=== PATIENT | male | born 1960 ===

== ENCOUNTER 2021-01-03 18:09 | Inpatient (IN) | payer SELFPAY ==
[~2021-01-03] VITALS: Ht 172.7 cm; Wt 106.5 kg
[2021-01-03] MEDS ORDERED: 1/2 NS IV SOLUTION 1,000 ML IV PRN (18:45)
[2021-01-03] MEDS ORDERED: ONDANSETRON 4 MG (ZOFRAN) ORAL DISSOLVE TAB SL PRN (18:45)
[2021-01-03] MEDS ORDERED: LORazepam 1 MG (ATIVAN) TAB PO PRN (18:45)
[2021-01-03] MEDS ORDERED: SENNA W/DOCUSATE (SENOKOT S) TABLET PO PRN (18:45)
[2021-01-03] MEDS ORDERED: D5 1/2 NS 1000 ML IV SOLUTION 1,000 ML IV PRN (18:45)
[2021-01-03] MEDS ORDERED: ONDANSETRON 4 MG/2 ML (SDV) Z0FRAN IV PRN (18:45)
[2021-01-03] MEDS ORDERED: ANTACID SUSP 30 ML UDC (MYLANTA) PO PRN (18:45)
[2021-01-03] MEDS ORDERED: LORazepam INJ 2 MG/ML (ATIVAN) VIAL IM/IV PRN (18:45)
[2021-01-03 22:30] VITALS: BP 119/73
[2021-01-03] MEDS: NS IV 1000 ML 1,000 ML IV SCH (22:57)
[2021-01-03] MEDS: MAGNESIUM OXIDE (MAG-OX)400 MG TAB PO SCH (22:57)
[2021-01-03 23:29] VITALS: BP 101/59
[2021-01-04] VITALS (7 sets, daily range): BP systolic 99–140; BP diastolic 59–78
[2021-01-04] MEDS ORDERED: RT-ALBUTEROL SULF 2.5 MG/3 ML PRE-MIX VIAL INH PRN (02:45)
[2021-01-04] MEDS: NS IV 1000 ML 1,000 ML IV SCH ×3 (02:45→15:31)
[2021-01-04 05:39] LABS: HEMATOCRIT 24 % (40-54); HEMOGLOBIN 7.9 g/dL (13.3-17.7); MEAN CORPUSCULAR HEMOGLOBIN 34 pg (25-34); MEAN CORPUSCULAR HGB CONC 33 g/dL (32-36); MEAN CORPUSCULAR VOLUME 103 fL (80-99); MEAN PLATELET VOLUME 8.9 fL (9.0-12.2); PLATELET COUNT 159 10^3/uL (130-400); WHITE BLOOD COUNT 5.1 10^3/uL (4.3-11.0)
[2021-01-04 05:49] LABS: ALBUMIN 2.5 GM/DL (3.2-4.5); POTASSIUM 3.9 MMOL/L (3.6-5.0); PROTHROMBIN TIME PATIENT 13.3 SEC (12.2-14.7)
[2021-01-04 05:50] LABS: CALCIUM 7.8 MG/DL (8.5-10.1)
[2021-01-04 05:52] LABS: TOTAL PROTEIN 4.7 GM/DL (6.4-8.2)
[2021-01-04 05:53] LABS: BILIRUBIN,TOTAL 0.8 MG/DL (0.1-1.0)
[2021-01-04 05:55] LABS: CREATININE SERUM 0.63 MG/DL (0.60-1.30)
[2021-01-04] MEDS: THIAMINE 100 MG (VITAMIN B-1) TAB PO SCH (06:42)
[2021-01-04] MEDS: MAGNESIUM OXIDE (MAG-OX)400 MG TAB PO SCH ×2 (08:33→19:48)
[2021-01-04] MEDS: ACETAMINOPHEN 325 MG TABLET PO PRN (08:33)
[2021-01-04] MEDS: LORazepam INJ 2 MG/ML (ATIVAN) VIAL IV PRN ×6 (10:00→22:30)
[2021-01-04] MEDS ORDERED: MULT-1136 PO (10:06)
[2021-01-04] MEDS ORDERED: PEG15DRO9 OP (10:06)
[2021-01-04] MEDS ORDERED: METO50TA7 PO ×2 (10:06)
[2021-01-04] MEDS ORDERED: [UNRECOGNIZED DRUG - CODE] PO (10:06)
[2021-01-04] MEDS ORDERED: DIPH25TA65 PO (10:06)
--- NOTE | 2021-01-04 12:44 | History & Physical-Hospitalist ---
History of Present Illness HPI/Chief Complaint Pt is a 60yoCM with a PMH of HTN, alcohol abuse who presented to the ER due to weakness. He reports that last week he started to get sore muscles and weakness. He sustained multiple falls. 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 He quit drinking when all of this started as well and he feels quite shakey. He has quit drinking for months in the past and never had any withdrawal issues or seizures. He reports feeling better today. Source: patient Date Seen 01/04/21 Time Seen by a Provider: 11:15 Attending Physician Will Jeffrey MD PCP No,Local Physician Referring Physician Date of Admission Jan 03, 2021 at 22:20 Home Medications & Allergies Home Medications Reviewed patient Home Medication Reconciliation performed by pharmacy medication reconciliations slot technician and/or nursing. Patients Allergies have been reviewed. Allergies Allergies Coded Allergies No Known Drug Allergies (Unverified01/03/21) Past Jcpwvrx-Divdkw-Vxphve Hx Patient Social History Marrital Status: Employed/Student: employed Tobacco Use?: No Smoking Status: Former Smoker Smokeless type used: Chew Smokeless Tobacco Frequency: Current Everyday User, Heavy User Use of E-Cig and/or Vaping dev: No Substance use?: No Alcohol Use?: Yes Alcohol type: Beer Alcohol Frequency: Daily Additional Alcohol Comments: 5-16 DAILY Pt feels they are or have been: No Current Status Advance Directives: Yes Advance Directive Location: Home Communicates: Verbally Primary Language: [place] Preferred Spoken Language: [place]se Is interpretation needed?: No Sensory deficits: Vision impairment Implanted or Applied Medical D: None Past Medical History Hypertension Family Medical History Reviewed Nursing Family Hx No Pertinent Family Hx Review of Systems Constitutional: No chills, No fever; malaise, weakness EENTM: no symptoms reported Respiratory: no symptoms reported Cardiovascular: no symptoms reported Gastrointestinal: no symptoms reported Genitourinary: no symptoms reported Musculoskeletal: see HPI Skin: no symptoms reported Psychiatric/Neurological: No Symptoms Reported Physical Exam Physical Exam Vital Signs Vital Signs - First Documented 01/03/21 01/04/21 22:30 02:22 Temp 36.4 Pulse 103 Resp 18 B/P (MAP) 119/73 (88) Pulse Ox 100 O2 Delivery Room Air FiO2 21 Capillary Refill : Height, Weight, BMI Height: '" Weight: lbs. oz. kg; 232.26 BMI Method: General Appearance: No Apparent Distress, WD/WN HEENT: PERRL/EOMI, Moist Mucous Membranes Neck: Normal Inspection, Supple Respiratory: Lungs Clear, No Respiratory Distress Cardiovascular: Regular Rate, Rhythm, No Murmur Gastrointestinal: Normal Bowel Sounds, Non Tender, Soft Extremity: Normal Capillary Refill, No Calf Tenderness, No Pedal Edema Neurologic/Psychiatric: Alert, Oriented x3, Normal Mood/Affect Skin: Normal Color, Warm/Dry Results Results/Procedures Labs Laboratory Tests 01/04/21 05:25 Patient resulted labs reviewed. Imaging: Reviewed Imaging Report (from outside facility) Assessment/Plan Admission Diagnosis Rhabdomyolysis Admission Status: Inpatient Order (span 2 midnights) Reason for Inpatient Admission: see below Assessment and Plan Rhabdomyolsis Continue IVF CK down from 15k to 8k today Check in AM PT/OT Advised to hydrate with water/electrolytes instead of beer when working outside Alcohol abuse transaminitis 1 week since last drink CIWA protocol Quite shakey still HTN Continue home metoprolol Macrocytic anemia Hgb 7.9- consistent with alcohol abuse Trend DVT ppx: Lovenox Diagnosis/Problems Diagnosis/Problems (1) Alcohol abuse (2) Anemia, macrocytic (3) HTN (hypertension) Qualifiers: Hypertension type: primary hypertension Qualified Codes: I10 - Essential (primary) hypertension (4) Rhabdomyolysis Qualifiers: Rhabdomyolysis type: non-traumatic Qualified Codes: M62.82 - Rhabdomyolysis WILL JEFFREY MD Jan 04, 2021 12:44
--- NOTE | 2021-01-04 14:06 | Physical Therapy Evaluation ---
PT Evaluation-General Medical Diagnosis Admission Date Jan 03, 2021 at 22:20 Medical Diagnosis: RHABDOMYOLYSIS Onset Date: Jan 03, 2021 Therapy Diagnosis Therapy Diagnosis: impaired mobility, strength, endurance Precautions Precautions/Isolations: Seizure, Fall Prevention Referral Physician: Rachele Reason for Referral: Evaluation/Treatment Medical History Pertinent Medical History: Smoking Reviewed History: Yes Social History Home: Single Level Current Living Status: Spouse Entry Into Home: Stairs Without Railing PT Steps Into Home: 3 Prior Prior Level of Function SCALE: Activities may be completed with or without assistive devices. 3-Ksnjwenhqy-vltbfhb completes the activity by him/herself with no assistance from a helper. 5-Set-up or Clean-up Assistance-helper sets up or cleans up; patient completes activity. [place] assists only prior to or following the activity. 4-Supervision or Touching Assistance-helper provides verbal cues and/or touching/steadying and/or contact guard assistance as patient completes activity. Assistance may be provided throughout the activity or intermittently. 3-Partial/Moderate Assistance-helper does LESS THAN HALF the effort. [place]ham lifts, holds or supports trunk or limbs, but provides less than half the effort. 2-Substantial/Maximal Assistance-helper does MORE THAN HALF the effort. [place] lifts or holds trunk or limbs and provides more than half the effort. 4-Qekrhhvup-rucyzx does ALL the effort. Patient does none of the effort to complete the activity. Or, the assistance of 2 or more helpers is required for the patient to complete the activity. If activity was not attempted, code reason: 7-Patient Refused. 9-Not Applicable-not attempted and the patient did not perform the activity before the current illness, exacerbation or injury. 10-Not Attempted due to Environmental Limitations-(lack of equipment, weather restraints, etc.). 88-Not Attempted due to Medical Conditions or Safety Concerns. Bed Mobility: 6 Transfers (B,C,W/C): 6 Gait: 6 Stairs: 6 Indoor Mobility (Ambulation): Independent Stairs: Independent PT Evaluation-Current Subjective Patient in bed pre tx, agrees to PT, has no complaints of pain. Pt/Family Goals "to get stronger" Objective Patient Orientation: Person, Place, Situation Attachments: IV ROM/Strength ROM Lower Extremities WNL Strength Lower Extremities LLE (hip flexion 2/5, knee flexion 2/5, knee extension 3-/5, dorsiflexion 4/5), RLE (hip flexion 2/5, knee flexion 2/5, knee extension 2/5, dorsiflexion 4/5) Integumentary/Posture Integumentary patient has some wounds and bruising on both knees Sensory Vision: Wears Glasses Hearing: Functional Sensation Right Lower Extremit: Intact Sensation Left Lower Extremity: Intact Transfers Roll Left to Right (QC): 6 Sit to Lying (QC): 4 Lying to Sitting/Side of Bed(Q: 6 Sit to Stand (QC): 3 Patient had a bit of a hard time getting his legs back into bed when laying down but was able to do it without assist. Patient needed a hard mod assist to stand from a slightly elevated bed. Patient is very shaky, stands for about [id number] with worsening shaking before needing to sit back down. Patient's knees buckled with sitting, therapist guiding him back on the bed so he doesn't just collapse straight to the floor. Balance Sitting Static: Normal Sitting Dynamic: Normal Standing Static: Poor Standing Dynamic: Poor Treatment BLE supine exercises x10 (HS, QS, GS) Assessment/Needs Patient in bed post tx with nurse call, phone, tray, all needs met, has a telesitter, bed alarm on. Patient has impaired mobility, strength, endurance. Patient is a high fall risk, very shaky a weak with standing, high risk for knee buckling and fall if he should ambulate. Rehab Potential: Guarded PT Journalism Teacher Goals Journalism Teacher Goals PT Residential Goals Time Frame: Jan 11, 2021 Roll Left & Right (QC): 6 Sit to Lying (QC): 6 Lying-Sitting on Side/Bed(QC): 6 Sit to Stand (QC): 4 Chair/Abq-oi-Qtmpn Xfer(QC): 4 Walk 10 feet (QC): 4 Walk 50ft with 2 Turns (QC): 4 PT Plan Problem List Problem List: Activity Tolerance, Functional Strength, Safety, Balance, Gait, Transfer, Bed Mobility, ROM Treatment/Plan Treatment Plan: Continue Plan of Care Treatment Plan: Bed Mobility, Education, Functional Activity Saniya, Functional Strength, Gait, Safety, Therapeutic Exercise, Transfers Treatment Duration: Jan 11, 2021 Frequency: 6 times per week Estimated Hrs Per Day: .25 hour per day Patient and/or Family Agrees t: Yes Safety Risks/Education Patient Education: Transfer Techniques, Correct Positioning, Safety Issues Teaching Recipient: Patient Teaching Methods: Demonstration, Discussion Response to Teaching: Reinforcement Needed Discharge Recommendations Plan Patient will perform bed mobility and transfer training, balance and endurance training, functional strengthening, stair training, gait training, and education, to improve functional mobility and independence at home. Therapy Discharge Recommendati: 24 Hour Supervision Time/GCodes Time In: 1306 Time Out: 1320 Total Billed Treatment Time: 14 Total Billed Treatment 1 visit EL Mena' KIM CORDERO PT Jan 04, 2021 14:06
[2021-01-04] MEDS: ENOXAPARIN 40 MG/0.4 ML (LOVENOX) SYR SQ SCH (15:28)
[2021-01-04] MEDS: meTOproloL SUCCINATE 50 MG (TOPROL XL) TAB PO SCH (15:28)
--- NOTE | 2021-01-04 16:22 | Diagnostic Imaging Report ---
INDICATION: Bilateral hip injury from a fall. EXAMINATION: AP view pelvis and two views of each hip were obtained. There is no fracture or dislocation. Joint spaces are well maintained. Articular surfaces appear smooth. IMPRESSION: Negative pelvis and bilateral hips. Dictated by: Dictated on workstation # [id number]
[2021-01-04] MEDS: diphenhydrAMINE 25 MG TAB (BENADRYL) PO SCH (19:48)
[2021-01-05] VITALS (28 sets, daily range): BP systolic 85–152; BP diastolic 52–90
[2021-01-05] MEDS: NS IV 1000 ML 1,000 ML IV SCH ×3 (00:19→16:16)
[2021-01-05] MEDS: LORazepam INJ 2 MG/ML (ATIVAN) VIAL IV PRN ×3 (01:14→09:20)
[2021-01-05] MEDS ORDERED: DexMEDEtomidine 250 ML DRIP 250 ML IV ONE (01:15)
[2021-01-05] MEDS ORDERED: DexMEDEtomidine 250 ML DRIP 250 ML IV SCH (01:15)
[2021-01-05 03:40] LABS: BASOPHILS % (AUTO) 1 % (0-10); EOSINOPHILS # (AUTO) 0.1 10^3/uL (0.0-0.3); EOSINOPHILS % (AUTO) 2 % (0-10); HEMATOCRIT 23 % (40-54); HEMOGLOBIN 7.4 g/dL (13.3-17.7); LYMPHOCYTES # (AUTO) 0.7 10^3/uL (1.0-4.0); LYMPHOCYTES % (AUTO) 18 % (12-44); MEAN CORPUSCULAR HEMOGLOBIN 35 pg (25-34); MEAN CORPUSCULAR HGB CONC 33 g/dL (32-36); MEAN CORPUSCULAR VOLUME 105 fL (80-99); MEAN PLATELET VOLUME 8.7 fL (9.0-12.2); MONOCYTES # (AUTO) 0.7 10^3/uL (0.0-1.0); MONOCYTES % (AUTO) 17 % (0-12); NEUTROPHILS # (AUTO) 2.4 10^3/uL (1.8-7.8); NEUTROPHILS % (AUTO) 59 % (42-75); PLATELET COUNT 161 10^3/uL (130-400)
[2021-01-05 03:52] LABS: POTASSIUM 3.5 MMOL/L (3.6-5.0)
[2021-01-05 03:53] LABS: CALCIUM 7.7 MG/DL (8.5-10.1)
[2021-01-05 03:57] LABS: PHOSPHORUS 4.4 MG/DL (2.3-4.7)
[2021-01-05 03:58] LABS: CREATININE SERUM 0.63 MG/DL (0.60-1.30)
--- NOTE | 2021-01-05 03:59 | Tele-ICU Consult ---
History of Present Illness History of Present Illness Date Seen by Provider: Jan 05, 2021 Time Seen by Provider: 03:54 Date of Admission Reason for Visit: Alcohol withdrawal delirium History of Present Illness New ICU admission for possible EtOH withdrawal 60y M with history of HTN and alcohol dependence (~ 15 beers/day per admission record) who presented to the ER initially due to weakness. He reports that last week he started to get sore muscles and weakness, some tremors. 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 Found to have non traumatic rhabdo on admission (date 01/03). Other issues Anemia On lovenox for DVT proph Patient to ICU room 8 at this time with detox symptoms. CIWA score 30 upon transfer. Patient shaking, hallucinating, drenched in sweat, very confused. Patient with a sitter at the bedside. 4mg Ativan administered per CIWA protocol. Precedex drip initiated per Dr Jeffrey order. Allergies and Home Medications Allergies Coded Allergies: No Known Drug Allergies (Unverified , 01/03/21) Home Medications Caffeine 200 Mg Tablet, 200 MG PO Q4H PRN for ALERTNESS, (Reported) Diphenhydramine HCl 25 Mg Tablet, 50 MG PO HS, (Reported) Metoprolol Succinate 50 Mg Tab.er.24h, 50 MG PO DAILY, (Reported) Metoprolol Succinate 50 Mg Tab.er.24h, 50 MG PO 1800 PRN for BLOOD PRESSURE, (Reported) Multivitamin 1 Each Tablet, 1 EACH PO DAILY, (Reported) Peg 400/Hypromellose/Glycerin 15 Ml Drops, 1-2 DROPS OP UD PRN for DRY EYES, (Reported) Past Medical/Social/Family Hx Patient Social History Marrital Status: Employed/Student: employed Tobacco Use?: No Smoking Status: Former Smoker Smokeless type used: Chew Smokeless Tobacco Frequency: Current Everyday User, Heavy User Use of E-Cig and/or Vaping dev: No Substance use?: No Alcohol Use?: Yes Alcohol type: Beer Alcohol Frequency: Daily 5-16 DAILY Pt stated abuse/neglect: No Immunizations Up To Date Influenza Vaccine Up-to-Date: No; Not Current Current Status Advance Directives: Yes Advance Directive Location: Home Communicates: Verbally Primary Language: [place]er Preferred Spoken Language: [place]er Is interpretation needed?: No Sensory deficits: Vision impairment Implanted or Applied Medical D: None Review of Systems Constitutional: diaphoresis, weakness All Other Systems Reviewed Negative Unless Noted: No Exam Exam Patient acknowledged, consented, and participated in this virtual visit which was conducted using real time audio/video Vital Signs Date Time Temp Pulse Resp B/P (MAP) Pulse Ox O2 Delivery O2 Flow Rate FiO2 01/05/21 03:25 36.3 91 18 85/57 (66) 93 Nasal Cannula 2.00 01/05/21 03:25 93 Nasal Cannula 2.00 01/05/21 02:45 97 18 96/52 (67) 94 Nasal Cannula 2.00 01/05/21 02:15 101 19 107/58 (74) 96 Nasal Cannula 2.00 01/05/21 01:45 103 21 118/76 (90) 94 Nasal Cannula 2.00 01/05/21 01:34 93 Nasal Cannula 2.00 01/05/21 01:30 111 27 152/82 (105) 94 Nasal Cannula 2.00 01/05/21 01:27 113 128/80 01/05/21 01:25 Nasal Cannula 2.00 01/05/21 01:15 113 35 128/80 (96) 92 Room Air 01/05/21 01:06 36.4 122 26 124/90 (101) 93 Room Air 01/05/21 01:00 120 01/04/21 23:48 36.9 117 22 136/77 (96) 96 Room Air 01/04/21 20:00 Room Air 01/04/21 19:06 36.0 118 20 140/78 (98) 97 Room Air 01/04/21 15:07 36.0 112 20 99/65 (76) 97 Room Air 01/04/21 12:50 102 01/04/21 11:59 36.6 64 20 105/63 (77) 99 Room Air 01/04/21 08:00 36.8 121 20 105/64 (78) 97 Room Air 01/04/21 08:00 Room Air 01/04/21 07:00 104 01/04/21 04:00 36.4 104 18 105/63 (77) 94 Room Air I & O 01/05/21 07:00 Intake Total 2490 ml Output Total 925 ml Balance 1565 ml Height & Weight Height: '" Weight: lbs. oz. kg; 232.26 BMI Method: General Appearance: No Apparent Distress, WD/WN HEENT: PERRL/EOMI, Moist Mucous Membranes Neck: Normal Inspection, Supple Respiratory: Lungs Clear, No Respiratory Distress Cardiovascular: Regular Rate, Rhythm, No Murmur Extremity: Normal Capillary Refill, No Calf Tenderness, No Pedal Edema Neurologic/Psychiatric: Alert, Oriented x3, Normal Mood/Affect Skin: Normal Color, Warm/Dry Results Lab Laboratory Tests 01/04/21 05:25 01/05/21 03:25 Assessment/Plan Assessment/Plan Alcohol withdrawal delirium, worsening. CIWA 30-34. Precedex, Ativan PRN. CIWA protocol in place. Sitter at bedside for safety Thiamine, folate, Magnesium Anemia without acute blood loss, worsening. Add PPI. Rhabdomyolysis on admit, improving HTN DVT prophylaxis on Lovenox Tobacco cessation Negative sepsis screen Critical Care: Critically Ill Patient Time spent with patient (mins): 15 SANTY ROJAS MD Jan 05, 2021 03:59
[2021-01-05] MEDS: KCL 20 MEQ TAB (K-DUR) PO SCH (04:03)
[2021-01-05] MEDS: MAGNESIUM 1 GM/100 ML IVPB 100 ML IV SCH (04:03)
[2021-01-05] MEDS: POTASSIUM CL 10MEQ/50ML IVPB 50 ML IV SCH ×3 (04:03→04:16)
[2021-01-05] MEDS: THIAMINE 100 MG (VITAMIN B-1) TAB PO SCH (06:04)
--- NOTE | 2021-01-05 08:53 | Progress Note - Hospitalist ---
Subjective HPI/CC On Admission Date Seen by Provider: Jan 05, 2021 Time Seen by Provider: 08:49 Pt is a 60yoCM with a PMH of HTN, alcohol abuse who presented to the ER due to weakness. He reports that last week he started to get sore muscles and weakness. He sustained multiple falls. 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 He quit drinking when all of this started as well and he feels quite shakey. He has quit drinking for months in the past and never had any withdrawal issues or seizures. He reports feeling better today. Subjective/Events-last exam Pt moved to ICU overnight due to severe withdrawal symptoms. Opens eyes and shakes head no when asked if he need anything. Otherwise did not participate in conversation. sitter at bedside. Currently on Precedex. Objective Exam Vital Signs Vital Signs Date Time Temp Pulse Resp B/P (MAP) Pulse Ox O2 Delivery O2 Flow Rate FiO2 01/05/21 08:00 83 17 123/77 (92) 100 Nasal Cannula 2.00 01/05/21 07:03 36.0 01/04/21 02:22 21 Capillary Refill : General Appearance: No Apparent Distress, Obese Respiratory: Lungs Clear, No Respiratory Distress Cardiovascular: Regular Rate, Rhythm, No Murmur Gastrointestinal: Normal Bowel Sounds, Soft Neurologic/Psychiatric: Alert, Disoriented Results/Procedures Lab Laboratory Tests 01/05/21 03:25 Patient resulted labs reviewed. Imaging: Reviewed Imaging Report (from outside facility) Assessment/Plan Assessment and Plan Assess & Plan/Chief Complaint Alcohol abuse transaminitis 1 week since last drink was reported though given severity of withdrawal overnight probably not accurate Transferred to ICU for CIWA scores of 26-34 Precedex CIWA protocol instructional services librarian consulted, appreciate their assistance Rhabdomyolsis Continue IVF [place] down to 7327 today with IVF Check in AM PT HTN Continue home metoprolol Macrocytic anemia Hgb 7.4- consistent with alcohol abuse Trend DVT ppx: Lovenox Critical Care Critically Ill Patient Diagnosis/Problems Diagnosis/Problems (1) Alcohol abuse (2) Anemia, macrocytic (3) HTN (hypertension) Qualifiers: Hypertension type: primary hypertension Qualified Codes: I10 - Essential (primary) hypertension (4) Rhabdomyolysis Qualifiers: Rhabdomyolysis type: non-traumatic Qualified Codes: M62.82 - Rhabdomyolysis WILL WEAVER MD Jan 05, 2021 08:53
[2021-01-05 09:01] LABS: ALBUMIN 2.5 GM/DL (3.2-4.5)
[2021-01-05 09:04] LABS: TOTAL PROTEIN 4.6 GM/DL (6.4-8.2)
[2021-01-05 09:06] LABS: BILIRUBIN,TOTAL 0.8 MG/DL (0.1-1.0)
[2021-01-05 09:09] LABS: BILIRUBIN,DIRECT 0.4 MG/DL (0.0-0.3); BILIRUBIN,INDIRECT 0.4 MG/DL
[2021-01-05] MEDS: meTOproloL SUCCINATE 50 MG (TOPROL XL) TAB PO SCH (09:09)
[2021-01-05] MEDS: FOLIC ACID 1 MG TAB PO SCH (09:10)
[2021-01-05] MEDS: PANTOPRAZOLE 40 MG (PROTONIX) TAB PO SCH (09:10)
[2021-01-05] MEDS: MAGNESIUM OXIDE (MAG-OX)400 MG TAB PO SCH ×2 (09:10→19:23)
[2021-01-05] MEDS: ENOXAPARIN 40 MG/0.4 ML (LOVENOX) SYR SQ SCH (14:52)
[2021-01-05] MEDS: diphenhydrAMINE 25 MG TAB (BENADRYL) PO SCH (19:23)
[2021-01-06] VITALS (14 sets, daily range): BP systolic 114–133; BP diastolic 60–86
[2021-01-06] MEDS: NS IV 1000 ML 1,000 ML IV SCH (00:19)
[2021-01-06 03:31] LABS: BASOPHILS % (AUTO) 1 % (0-10); EOSINOPHILS # (AUTO) 0.1 10^3/uL (0.0-0.3); EOSINOPHILS % (AUTO) 3 % (0-10); HEMATOCRIT 27 % (40-54); HEMOGLOBIN 8.8 g/dL (13.3-17.7); LYMPHOCYTES # (AUTO) 0.8 10^3/uL (1.0-4.0); LYMPHOCYTES % (AUTO) 23 % (12-44); MEAN CORPUSCULAR HEMOGLOBIN 35 pg (25-34); MEAN CORPUSCULAR HGB CONC 33 g/dL (32-36); MEAN CORPUSCULAR VOLUME 105 fL (80-99); MEAN PLATELET VOLUME 8.6 fL (9.0-12.2); MONOCYTES # (AUTO) 0.5 10^3/uL (0.0-1.0); MONOCYTES % (AUTO) 14 % (0-12); NEUTROPHILS % (AUTO) 55 % (42-75); PLATELET COUNT 198 10^3/uL (130-400); WHITE BLOOD COUNT 3.7 10^3/uL (4.3-11.0)
[2021-01-06 03:44] LABS: POTASSIUM 3.8 MMOL/L (3.6-5.0)
[2021-01-06 03:45] LABS: CALCIUM 7.9 MG/DL (8.5-10.1)
[2021-01-06 03:49] LABS: CREATININE SERUM 0.6 MG/DL (0.60-1.30); PHOSPHORUS 2.7 MG/DL (2.3-4.7)
[2021-01-06] MEDS: MAGNESIUM 1 GM/100 ML IVPB 100 ML IV SCH (04:18)
[2021-01-06] MEDS: POTASSIUM CL 10MEQ/50ML IVPB 50 ML IV SCH (04:18)
[2021-01-06] MEDS: KCL 20 MEQ TAB (K-DUR) PO SCH (04:19)
[2021-01-06] MEDS: THIAMINE 100 MG (VITAMIN B-1) TAB PO SCH (04:39)
--- NOTE | 2021-01-06 08:12 | Progress Note - Hospitalist ---
Subjective HPI/CC On Admission Date Seen by Provider: Jan 06, 2021 Time Seen by Provider: 08:07 Pt is a 60yoCM with a PMH of HTN, alcohol abuse who presented to the ER due to weakness. He reports that last week he started to get sore muscles and weakness. He sustained multiple falls. 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 He quit drinking when all of this started as well and he feels quite shakey. He has quit drinking for months in the past and never had any withdrawal issues or seizures. He reports feeling better today. Subjective/Events-last exam Pt is much more alert today. Oriented today as well. No complaints.Asks me why he has been falling. We discussed how drink 18 beers per day would make anyone fall down. He does not seem to believe this to be the reason. Objective Exam Vital Signs Vital Signs Date Time Temp Pulse Resp B/P (MAP) Pulse Ox O2 Delivery O2 Flow Rate FiO2 01/06/21 07:38 36.2 01/06/21 07:00 68 01/06/21 06:00 20 123/67 (85) 96 Room Air 01/06/21 05:00 1.00 01/05/21 16:15 28 Capillary Refill : General Appearance: No Apparent Distress, Chronically ill, Obese Respiratory: Lungs Clear, No Respiratory Distress Cardiovascular: Regular Rate, Rhythm, No Murmur Gastrointestinal: Normal Bowel Sounds, Soft Neurologic/Psychiatric: Alert, Oriented x3 Results/Procedures Lab Laboratory Tests 01/06/21 03:20 Patient resulted labs reviewed. 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 though given severity of withdrawal while here probably not accurate Now off Precedex [facility] protocol customer services supervisor consulted, appreciate their assistance Transfer to [facility] Rhabdomyolsis Continue IVF CK pending this AM PT HTN Continue home metoprolol Macrocytic anemia Hgb 8.8 - consistent with alcohol abuse DVT ppx: Lovenox Critical Care Critically Ill Patient Diagnosis/Problems Diagnosis/Problems (1) Alcohol abuse (2) Anemia, macrocytic (3) HTN (hypertension) Qualifiers: Hypertension type: primary hypertension Qualified Codes: I10 - Essential (primary) hypertension (4) Rhabdomyolysis Qualifiers: Rhabdomyolysis type: non-traumatic Qualified Codes: M62.82 - Rhabdomyolysis WILL WEAVER MD Jan 06, 2021 08:12
[2021-01-06] MEDS: meTOproloL SUCCINATE 50 MG (TOPROL XL) TAB PO SCH (08:17)
[2021-01-06] MEDS: MAGNESIUM OXIDE (MAG-OX)400 MG TAB PO SCH (08:17)
[2021-01-06] MEDS: FOLIC ACID 1 MG TAB PO SCH (08:17)
[2021-01-06] MEDS: PANTOPRAZOLE 40 MG (PROTONIX) TAB PO SCH (08:17)
--- NOTE | 2021-01-06 08:57 | Tele-ICU Progress Note ---
Subjective Date Seen by a Provider: Jan 06, 2021 Time Seen by a Provider: 08:54 Subjective/Events-last exam 60 ho M brought to MICU for increasing severity of EtOH withdrawal, CIWA estimated to be 30, placed on PRN IV Ativan, calmer this am Had rhabdo with orginal CK 7327, now 2654 On MVI, folate and IV thiamine Hb now 8.8 Sepsis Event Evaluation Height, Weight, BMI Height: '" Weight: lbs. oz. kg; 232.26 BMI Method: Exam Exam Patient acknowledged, consented, and participated in this virtual visit which was conducted using real time audio/video Vital Signs Date Time Temp Pulse Resp B/P (MAP) Pulse Ox O2 Delivery O2 Flow Rate FiO2 01/06/21 08:00 66 18 124/71 (84) 94 Room Air 01/06/21 07:38 36.2 01/06/21 07:00 68 01/06/21 07:00 67 17 120/60 (93) 99 Room Air 01/06/21 06:00 86 20 123/67 (85) 96 Room Air 01/06/21 05:50 Room Air 01/06/21 05:00 100 15 117/62 (80) 100 Nasal Cannula 1.00 01/06/21 04:00 90 16 133/78 (96) 97 Nasal Cannula 1.00 01/06/21 03:50 100 Nasal Cannula 1.00 01/06/21 03:50 36.5 100 Nasal Cannula 1.00 01/06/21 03:00 83 21 133/80 (97) 100 Nasal Cannula 1.00 01/06/21 02:00 80 18 122/72 (89) 98 Nasal Cannula 1.00 01/06/21 01:50 98 Nasal Cannula 1.00 01/06/21 01:00 70 01/06/21 01:00 67 17 115/69 (84) 100 Nasal Cannula 1.00 01/06/21 00:00 89 21 116/86 (96) 100 Nasal Cannula 1.00 01/05/21 23:25 36.8 Nasal Cannula 1.00 01/05/21 23:25 100 Nasal Cannula 1.00 01/05/21 23:00 77 23 129/78 (95) 99 Nasal Cannula 1.00 01/05/21 22:00 85 26 112/78 (89) 97 Nasal Cannula 1.00 01/05/21 21:42 99 Nasal Cannula 1.00 01/05/21 21:00 84 21 121/75 (90) 99 Nasal Cannula 1.00 01/05/21 20:00 95 23 118/72 (87) 92 Nasal Cannula 1.00 01/05/21 19:25 94 Nasal Cannula 1.00 01/05/21 19:10 37.0 Nasal Cannula 1.00 01/05/21 19:00 84 12 121/80 (94) 99 Nasal Cannula 1.00 01/05/21 19:00 82 01/05/21 18:22 Nasal Cannula 1.00 01/05/21 18:00 63 16 107/66 (80) 100 Nasal Cannula 2.00 01/05/21 17:00 80 17 106/65 (79) 100 Nasal Cannula 2.00 01/05/21 16:18 79 18 110/70 (83) 100 Nasal Cannula 2.00 01/05/21 16:18 100 Nasal Cannula 2.00 01/05/21 16:15 36.0 80 100 28 01/05/21 15:54 100 Nasal Cannula 2.00 01/05/21 15:00 87 25 107/67 (80) 99 Nasal Cannula 2.00 01/05/21 14:00 80 17 106/63 (77) 100 Nasal Cannula 2.00 01/05/21 13:00 68 16 109/70 (83) 100 Nasal Cannula 2.00 01/05/21 12:45 68 01/05/21 12:00 100 Nasal Cannula 2.00 01/05/21 11:51 36.0 67 18 100/70 (80) 100 Nasal Cannula 2.00 01/05/21 11:00 90 15 114/79 (91) 100 Nasal Cannula 2.00 01/05/21 10:00 82 16 107/70 (82) 97 Nasal Cannula 2.00 01/05/21 09:00 79 17 115/76 (89) 100 Nasal Cannula 2.00 I & O 01/06/21 07:00 Intake Total 4025 ml Output Total 2435 ml Balance 1590 ml Height & Weight Height: '" Weight: lbs. oz. kg; 232.26 BMI Method: General Appearance: No Apparent Distress, Chronically ill, Obese HEENT: PERRL/EOMI, Moist Mucous Membranes Neck: Normal Inspection, Supple Respiratory: Lungs Clear, No Respiratory Distress Cardiovascular: Regular Rate, Rhythm, No Murmur Extremity: Normal Capillary Refill, No Calf Tenderness, No Pedal Edema Neurologic/Psychiatric: Alert, Oriented x3 Skin: Normal Color, Warm/Dry Results Lab Laboratory Tests 01/05/21 03:25 01/06/21 03:20 Assessment/Plan Assessment/Plan EtOH withdrawal, will continue on present meds, appears well controlled, Critical Care: Critically Ill Patient Time spent with patient (mins): 30 JUDI BRITTON MD Jan 06, 2021 08:57
[2021-01-06] MEDS: ENOXAPARIN 40 MG/0.4 ML (LOVENOX) SYR SQ SCH (16:29)
[2021-01-06] MEDS: diphenhydrAMINE 25 MG TAB (BENADRYL) PO SCH (19:42)
[2021-01-06] MEDS: ACETAMINOPHEN 325 MG TABLET PO PRN (23:22)
[2021-01-07 04:30] VITALS: BP 123/73
[2021-01-07 06:13] LABS: BASOPHILS % (AUTO) 1 % (0-10); EOSINOPHILS # (AUTO) 0.1 10^3/uL (0.0-0.3); EOSINOPHILS % (AUTO) 3 % (0-10); HEMATOCRIT 27 % (40-54); HEMOGLOBIN 8.7 g/dL (13.3-17.7); LYMPHOCYTES % (AUTO) 29 % (12-44); MEAN CORPUSCULAR HEMOGLOBIN 34 pg (25-34); MEAN CORPUSCULAR HGB CONC 32 g/dL (32-36); MEAN CORPUSCULAR VOLUME 107 fL (80-99); MEAN PLATELET VOLUME 8.5 fL (9.0-12.2); MONOCYTES # (AUTO) 0.5 10^3/uL (0.0-1.0); MONOCYTES % (AUTO) 15 % (0-12); NEUTROPHILS # (AUTO) 1.7 10^3/uL (1.8-7.8); NEUTROPHILS % (AUTO) 49 % (42-75); PLATELET COUNT 214 10^3/uL (130-400); WHITE BLOOD COUNT 3.5 10^3/uL (4.3-11.0)
[2021-01-07 06:24] LABS: POTASSIUM 3.6 MMOL/L (3.6-5.0)
[2021-01-07] MEDS: POTASSIUM CL 10MEQ/50ML IVPB 50 ML IV SCH (06:28)
[2021-01-07] MEDS: KCL 20 MEQ TAB (K-DUR) PO SCH (06:28)
[2021-01-07 06:29] LABS: PHOSPHORUS 2.6 MG/DL (2.3-4.7)
[2021-01-07 06:30] LABS: CREATININE SERUM 0.64 MG/DL (0.60-1.30)
[2021-01-07] MEDS ORDERED: KCL 20 MEQ TAB (K-DUR) PO ONE (06:30)
[2021-01-07 06:32] LABS: MAGNESIUM 1.9 MG/DL (1.6-2.4)
[2021-01-07] MEDS: MAGNESIUM 1 GM/100 ML IVPB 100 ML IV SCH (06:34)
[2021-01-07 08:00] VITALS: BP 135/83
[2021-01-07] MEDS: FOLIC ACID 1 MG TAB PO SCH (08:39)
[2021-01-07] MEDS: PANTOPRAZOLE 40 MG (PROTONIX) TAB PO SCH (08:39)
[2021-01-07] MEDS: meTOproloL SUCCINATE 50 MG (TOPROL XL) TAB PO SCH (08:39)
--- NOTE | 2021-01-07 10:39 | Physical Therapy Evaluation ---
PT Evaluation-General Medical Diagnosis Admission Date Jan 03, 2021 at 22:20 Medical Diagnosis: RHABDOMYOLYSIS Onset Date: Jan 03, 2021 Therapy Diagnosis Therapy Diagnosis: generalized weakness/debility Precautions Precautions/Isolations: Fall Prevention, Standard Precautions Referral Physician: Rachele Reason for Referral: Evaluation/Treatment Medical History Pertinent Medical History: Alcoholism, Smoking Current History Patient transferred to ICU and back to acute. PT reassess per verbal order. Reviewed History: Yes Social History Home: Single Level Current Living Status: Spouse Entry Into Home: Stairs Without Railing PT Steps Into Home: 3 Prior Prior Level of Function SCALE: Activities may be completed with or without assistive devices. 5-Bwyoedpdei-jkjtqms completes the activity by him/herself with no assistance from a helper. 5-Set-up or Clean-up Assistance-helper sets up or cleans up; patient completes activity. [place] assists only prior to or following the activity. 4-Supervision or Touching Assistance-helper provides verbal cues and/or touching/steadying and/or contact guard assistance as patient completes activity. Assistance may be provided throughout the activity or intermittently. 3-Partial/Moderate Assistance-helper does LESS THAN HALF the effort. [place] lifts, holds or supports trunk or limbs, but provides less than half the effort. 2-Substantial/Maximal Assistance-helper does MORE THAN HALF the effort. [place] lifts or holds trunk or limbs and provides more than half the effort. 7-Awlprdvyo-dzxltn does ALL the effort. Patient does none of the effort to complete the activity. Or, the assistance of 2 or more helpers is required for the patient to complete the activity. If activity was not attempted, code reason: 7-Patient Refused. 9-Not Applicable-not attempted and the patient did not perform the activity bef ore the current illness, exacerbation or injury. 10-Not Attempted due to Environmental Limitations-(lack of equipment, weather r estraints, etc.). 88-Not Attempted due to Medical Conditions or Safety Concerns. Bed Mobility: 6 Transfers (B,C,W/C): 6 Gait: 6 Stairs: 6 Indoor Mobility (Ambulation): Independent Stairs: Independent Prior Devices Use: None PT Evaluation-Current Subjective Patient agrees to PT. Objective Patient Orientation: Normal For Age ROM/Strength ROM Lower Extremities bilateral LE WFL Strength Lower Extremities 4-/5 grossly bilateral LE Integumentary/Posture Bowel Incontinence: No Bladder Incontinence: No Posture WFL Neuromuscular (Tone, Coordination, Reflexes) noted total body shaking with initial sit to stand transfer with improvement with activity/diminished coordination Sensory Vision: Wears Glasses Hearing: Functional Sensation Right Lower Extremit: Intact Sensation Left Lower Extremity: Intact Transfers Roll Left to Right (QC): 4 Sit to Lying (QC): 4 Lying to Sitting/Side of Bed(Q: 4 Sit to Stand (QC): 3 Chair/Wul-yt-Ccyis Xfer(QC): 4 Toilet Transfer (QC): 3 Gait Does the Patient Walk?: Yes Mode of Locomotion: Walk Anticipated Mode of Locomotion: Walk Walk 10 feet (QC): 4 Walk 50 ft with 2 Turns(QC): 4 Walk 150 ft (QC): 4 Distance: 225' Gait Assistive Device: FWW Comments/Gait Description slightly unsteady with PT CGA with gait belt use Balance Sitting Static: Normal Sitting Dynamic: Normal Standing Static: Fair Standing Dynamic: Fair Assessment/Needs 60 y.o. male, will benefit from skilled PT to address functional strength and mobility to improve current LOF to safely return to home at maximum LOF. Rehab Potential: Fair PT Electrical Worker Goals Care Home Goals PT Electrical Worker Goals Time Frame: Jan 19, 2021 Roll Left & Right (QC): 6 Sit to Lying (QC): 6 Lying-Sitting on Side/Bed(QC): 6 Sit to Stand (QC): 6 Chair/Mrx-gv-Jblmy Xfer(QC): 6 Toilet Transfer (QC): 6 Walk 10 feet (QC): 5 Walk 50ft with 2 Turns (QC): 5 Walk 150 ft (QC): 5 PT Plan Problem List Problem List: Activity Tolerance, Functional Strength, Safety, Balance, Gait, Transfer Treatment/Plan Treatment Plan: Continue Plan of Care Treatment Plan: Bed Mobility, Education, Functional Activity Saniya, Functional Strength, Gait, Safety, Therapeutic Exercise, Transfers Treatment Duration: Jan 19, 2021 Frequency: 6 times per week Estimated Hrs Per Day: .25 hour per day Patient and/or Family Agrees t: Yes Time/GCodes Time In: 902 Time Out: 919 Total Billed Treatment Time: 17 Total Billed Treatment 1 visit EVModC 17 min KHANH ALEJANDRO PT Jan 07, 2021 10:39
[2021-01-07 12:00] VITALS: BP 127/80
--- NOTE | 2021-01-07 13:49 | Progress Note - Hospitalist ---
Subjective HPI/CC On Admission Date Seen by Provider: Jan 07, 2021 Time Seen by Provider: 09:45 Pt is a 60yoCM with a PMH of HTN, alcohol abuse who presented to the ER due to weakness. He reports that last week he started to get sore muscles and weakness. He sustained multiple falls. 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 He quit drinking when all of this started as well and he feels quite shakey. He has quit drinking for months in the past and never had any withdrawal issues or seizures. He reports feeling better today. Subjective/Events-last exam He is feeling better. He is still weak though. He does not feel like he is ready to go home. He denies pain. He denies shortness of breath. Objective Exam Vital Signs Vital Signs Date Time Temp Pulse Resp B/P (MAP) Pulse Ox O2 Delivery O2 Flow Rate FiO2 01/07/21 12:00 36.6 96 20 127/80 (96) 97 Room Air 01/06/21 07:30 1.00 01/05/21 16:15 28 Capillary Refill : General Appearance: No Apparent Distress, Obese Respiratory: Lungs Clear, Normal Breath Sounds, No Respiratory Distress Cardiovascular: Regular Rate, Rhythm, No Edema, No Murmur Gastrointestinal: Normal Bowel Sounds, Non Tender, Soft Extremity: Normal Inspection, Non Tender, No Pedal Edema Neurologic/Psychiatric: Alert, Oriented x3, No Motor/Sensory Deficits, Normal Mood/Affect Skin: Normal Color, Warm/Dry Results/Procedures Lab Laboratory Tests 01/07/21 05:46 Patient resulted labs reviewed. Imaging: Reviewed Imaging Report (from outside facility) Assessment/Plan Assessment and Plan Assess & Plan/Chief Complaint Alcohol abuse No sign of alcohol withdrawal at this time Stop [place] protocol ambulatory services representative consulted, appreciate their assistance Rhabdomyolsis Continue IVF CK Improved HTN Continue home metoprolol Macrocytic anemia Neutropenia Stable, presumed due to alcohol abuse Debility PT/OT DVT ppx: Lovenox Diagnosis/Problems Diagnosis/Problems (1) Alcohol abuse Status: Acute (2) Rhabdomyolysis Qualifiers: Rhabdomyolysis type: non-traumatic Qualified Codes: M62.82 - Rh abdomyolysis ADRIÁN RODRIGUEZ MD Jan 07, 2021 13:49
[2021-01-07 16:00] VITALS: BP 130/79
[2021-01-07] MEDS: ENOXAPARIN 40 MG/0.4 ML (LOVENOX) SYR SQ SCH (16:14)
[2021-01-07] MEDS ORDERED: LOPERAMIDE 2 MG (IMODIUM) TABLET PO PRN (16:30)
[2021-01-07 20:00] VITALS: BP 119/75
[2021-01-07] MEDS: diphenhydrAMINE 25 MG TAB (BENADRYL) PO SCH (20:04)
[2021-01-08 00:02] VITALS: BP 106/67
[2021-01-08] MEDS: ACETAMINOPHEN 325 MG TABLET PO PRN ×2 (00:42→08:34)
[2021-01-08 04:19] VITALS: BP 110/78
[2021-01-08 06:55] LABS: BASOPHILS % (AUTO) 1 % (0-10); EOSINOPHILS # (AUTO) 0.1 10^3/uL (0.0-0.3); EOSINOPHILS % (AUTO) 3 % (0-10); HEMATOCRIT 29 % (40-54); HEMOGLOBIN 9.3 g/dL (13.3-17.7); LYMPHOCYTES % (AUTO) 36 % (12-44); MEAN CORPUSCULAR HEMOGLOBIN 34 pg (25-34); MEAN CORPUSCULAR HGB CONC 33 g/dL (32-36); MEAN CORPUSCULAR VOLUME 105 fL (80-99); MEAN PLATELET VOLUME 8.9 fL (9.0-12.2); MONOCYTES # (AUTO) 0.7 10^3/uL (0.0-1.0); MONOCYTES % (AUTO) 12 % (0-12); NEUTROPHILS # (AUTO) 2.6 10^3/uL (1.8-7.8); NEUTROPHILS % (AUTO) 46 % (42-75); PLATELET COUNT 279 10^3/uL (130-400); WHITE BLOOD COUNT 5.7 10^3/uL (4.3-11.0)
[2021-01-08 07:15] LABS: CALCIUM 8.7 MG/DL (8.5-10.1); CREATININE SERUM 0.68 MG/DL (0.60-1.30); MAGNESIUM 1.8 MG/DL (1.6-2.4); PHOSPHORUS 2.5 MG/DL (2.3-4.7); POTASSIUM 3.7 MMOL/L (3.6-5.0)
[2021-01-08] MEDS: POTASSIUM CL 10MEQ/50ML IVPB 50 ML IV SCH (07:32)
[2021-01-08] MEDS: MAGNESIUM 1 GM/100 ML IVPB 100 ML IV SCH (07:33)
[2021-01-08] MEDS: KCL 20 MEQ TAB (K-DUR) PO SCH (07:33)
[2021-01-08 08:14] VITALS: BP 143/87
[2021-01-08] MEDS: PANTOPRAZOLE 40 MG (PROTONIX) TAB PO SCH (08:31)
[2021-01-08] MEDS: meTOproloL SUCCINATE 50 MG (TOPROL XL) TAB PO SCH (08:31)
[2021-01-08] MEDS: FOLIC ACID 1 MG TAB PO SCH (08:31)
--- NOTE | 2021-01-08 10:14 | Physical Therapy Daily Note ---
PT Daily Note-Current Subjective Patient agrees to PT. Mental Status Patient Orientation: Normal For Age Transfers SCALE: Activities may be completed with or without assistive devices. 2-Iexbfsrhkb-baymdwb completes the activity by him/herself with no assistance from a helper. 5-Set-up or Clean-up Assistance-helper sets up or cleans up; patient completes activity. [place] assists only prior to or following the activity. 4-Supervision or Touching Assistance-helper provides verbal cues and/or touching/steadying and/or contact guard assistance as patient completes activity. Assistance may be provided throughout the activity or intermittently. 3-Partial/Moderate Assistance-helper does LESS THAN HALF the effort. [place] lifts, holds or supports trunk or limbs, but provides less than half the effort. 2-Substantial/Maximal Assistance-helper does MORE THAN HALF the effort. [place] lifts or holds trunk or limbs and provides more than half the effort. 0-Hyxpvmurd-hdvyrc does ALL the effort. Patient does none of the effort to complete the activity. Or, the assistance of 2 or more helpers is required for the patient to complete the activity. If activity was not attempted, code reason: 7-Patient Refused. 9-Not Applicable-not attempted and the patient did not perform the activity befo re the current illness, exacerbation or injury. 10-Not Attempted due to Environmental Limitations-(lack of equipment, weather re straints, etc.). 88-Not Attempted due to Medical Conditions or Safety Concerns. Lying to Sitting/Side of Bed(Q: 6 Sit to Stand (QC): 6 Chair/Aor-op-Dxhwh Xfer(QC): 6 Gait Training Does the Patient Walk?: Yes Distance: 500' Walk 10 feet (QC): 6 Walk 50 ft with 2 Turns(QC): 6 Walk 150 ft (QC): 6 Gait Assistive Device: None safe and functional with no deviation Stair Training Stair Training: Handrails/: 1 handrail #of Steps: 8 1 Step (curb) (QC): 4 4 Steps (QC): 4 Stairs: Pattern: Step to Assessment Patient is currently at independent LOF with all gross motor skills. PT to dismiss from services. PT Detention Goals Detention Goals PT Detention Goals Time Frame: Jan 19, 2021 Roll Left & Right (QC): 6 Sit to Lying (QC): 6 Lying-Sitting on Side/Bed(QC): 6 Sit to Stand (QC): 6 Chair/Giy-kk-Qvvmc Xfer(QC): 6 Toilet Transfer (QC): 6 Walk 10 feet (QC): 5 Walk 50ft with 2 Turns (QC): 5 Walk 150 ft (QC): 5 PT Plan Treatment/Plan Treatment Plan: Continue Plan of Care Treatment Plan: Bed Mobility, Education, Functional Activity Saniya, Functional Strength, Gait, Safety, Therapeutic Exercise, Transfers Treatment Duration: Jan 19, 2021 Frequency: 6 times per week Estimated Hrs Per Day: .25 hour per day Patient and/or Family Agrees t: Yes Time/GCodes Time In: 925 Time Out: 935 Total Billed Treatment Time: 10 Total Billed Treatment 1 visit FA 10 min KHANH ALEJANDRO PT Jan 08, 2021 10:14
--- NOTE | 2021-01-08 10:52 | Discharge Summary ---
Discharge Summary Hospital Course Was the Problem List Reviewed?: Yes Problems/Dx: (1) Alcohol abuse Status: Acute (2) Rhabdomyolysis Qualifiers: Qualified Codes: M62.82 - Rhabdomyolysis Hospital Course Date of Admission: Jan 03, 2021 at 22:20 Admission Diagnosis: Rhabdomyolysis Family Physician/Provider: Brittani,Local Physician Date of Discharge: 01/08/21 Discharge Diagnosis: Rhabdomyolysis, Alcohol abuse Hospital Course: Ever Burgos is a 60-year-old male with history of alcohol abuse who was admitted with rhabdomyolysis. He was also very dehydrated. He responded well to IV fluids. He had no significant alcohol withdrawal. He was debilitated and responded well to physical therapy. He did not want home health care. He was set up with a walker. He should follow-up with his primary care physician. Labs and Pending Lab Test: Laboratory Tests 01/07/21 12:00: Glucometer 127H 01/08/21 06:04: White Blood Count 5.7, Red Blood Count 2.72L, Hemoglobin 9.3L, Hematocrit 29L, Mean Corpuscular Volume 105H, Mean Corpuscular Hemoglobin 34, Mean Corpuscular Hemoglobin Concent 33, Red Cell Distribution Width 15.9H, Platelet Count 279, Mean Platelet Volume 8.9L, Immature Granulocyte % (Auto) 3, Neutrophils (%) (Auto) 46, Lymphocytes (%) (Auto) 36, Monocytes (%) (Auto) 12, Eosinophils (%) (Auto) 3, Basophils (%) (Auto) 1, Neutrophils # (Auto) 2.6, Lymphocytes # (Auto) 2.0, Monocytes # (Auto) 0.7, Eosinophils # (Auto) 0.1, Basophils # (Auto) 0.0, Immature Granulocyte # (Auto) 0.1, Sodium Level 135, Potassium Level 3.7, Chloride Level 101, Carbon Dioxide Level 24, Anion Gap 10, Blood Urea Nitrogen 6L, Creatinine 0.68, Estimat Glomerular Filtration Rate 119, BUN/Creatinine Ratio 9, Glucose Level 106H, Calcium Level 8.7, Phosphorus Level 2.5, Magnesium Level 1.8 Microbiology 01/05/21 MRSA Screen - Final, Complete MRSA not isolated Home Meds Active Reported Visine Dry Eye Relief Drop (Peg 400/Hypromellose/Glycerin) 15 Ml Drops 1-2 Drops OP UD PRN Benadryl Allergy (Diphenhydramine HCl) 25 Mg Tablet 50 Mg PO HS Stay Awake (Caffeine) 200 Mg Tablet 200 Mg PO Q4H PRN Multivitamin 1 Each Tablet 1 Each PO DAILY Metoprolol Succinate 50 Mg Tab.er.24h 50 Mg PO 1800 PRN Metoprolol Succinate 50 Mg Tab.er.24h 50 Mg PO DAILY Assessment/Pt Instructions Take medications as prescribed. Follow-up with your primary care physician. Return with worsening symptoms. Discharge Planning: <30 minutes discharge planning Discharge Instructions Discharge Diet: No Restrictions Activity as Tolerated: Yes Discharge Physical Examination Vital Signs Vital Signs Date Time Temp Pulse Resp B/P (MAP) Pulse Ox O2 Delivery O2 Flow Rate FiO2 01/08/21 08:14 36.4 114 18 143/87 (105) 97 Room Air 01/06/21 07:30 1.00 01/05/21 16:15 28 General Appearance: No Apparent Distress, WD/WN Respiratory: Lungs Clear, Normal Breath Sounds, No Respiratory Distress Cardiovascular: Regular Rate, Rhythm, No Edema, No Murmur Gastrointestinal: Normal Bowel Sounds, Non Tender, Soft Extremity: Normal Inspection, Non Tender, No Pedal Edema Skin: Normal Color, Warm/Dry Neurologic/Psychiatric: Alert, Oriented x3, No Motor/Sensory Deficits, Normal Mood/Affect Allergies: Coded Allergies: No Known Drug Allergies (Unverified , 01/03/21) Discharge Summary Date of Admission Jan 03, 2021 at 22:20 Date of Discharge Discharge Date: Jan 08, 2021 Discharge Time: 10:51 Admission Diagnosis Rhabdomyolysis Discharge Diagnosis Alcohol abuse Rhabdomyolsis (1) Alcohol abuse Status: Acute (2) Rhabdomyolysis Qualifiers: Qualified Codes: M62.82 - Rhabdomyolysis ADRIÁN RODRIGUEZ MD Jan 08, 2021 10:52
[2021-01-08 11:43] VITALS: BP 123/79
[2021-01-08] MEDS ORDERED: COVID-19 VACC, MRNA(PFIZER)/PF 30 MCG/0.3 ML VIAL IM ONE (13:00)
[2021-01-08 15:39] VITALS: BP 123/79
== END 2021-01-08 15:39 | disposition home or self-care (01) | DRG 558 ==
LOC: 4TH 22:20 → ICU 01-05 02:21 → 4TH 01-06 15:06
PROVIDERS: ADMIT Family Medicine; ATTEND Internal Medicine
DX: M62.82 Rhabdomyolysis (principal); F10.131 Alcohol abuse with withdrawal delirium; E86.0 Dehydration; I10 Essential (primary) hypertension; D53.9 Nutritional anemia, unspecified; D70.9 Neutropenia, unspecified; R53.81 Other malaise; H54.7 Unspecified visual loss; F17.220 Nicotine dependence, chewing tobacco, uncomplicated; Z79.899 Other long term (current) drug therapy
CPT/HCPCS: 36415; 73523; 80048; 80053; 80076; 82550; 82947; 83735; 84100; 85025; 85027; 85610; 87081; 91300; 94760

== ENCOUNTER 2021-04-18 14:20 | Inpatient (IN) | payer MEDICAID, OTHER ==
[~2021-04-18] VITALS: Ht 172.7 cm; Wt 115.9 kg
[~2021-04-18 14:20] MED LIST: DIPH25TA65 PO; METO50TA7 PO; MULT-1136 PO; PEG15DRO9 OP; [UNRECOGNIZED DRUG - CODE] PO
[2021-04-18 15:15] VITALS: BP 127/90
[2021-04-18] MEDS ORDERED: diphenhydrAMINE 25 MG TAB (BENADRYL) PO PRN (17:30)
[2021-04-18] MEDS ORDERED: ONDANSETRON 4 MG/2 ML (SDV) Z0FRAN IV PRN (17:30)
[2021-04-18] MEDS ORDERED: ONDANSETRON 4 MG (ZOFRAN) ORAL DISSOLVE TAB SL PRN (17:30)
[2021-04-18] MEDS ORDERED: polyethylene glycoL POWDER 17 GM (MIRALAX) PACK PO PRN (17:30)
[2021-04-18] MEDS ORDERED: LORazepam INJ 2 MG/ML (ATIVAN) VIAL IM/IV PRN (17:30)
[2021-04-18] MEDS ORDERED: 1/2 NS IV SOLUTION 1,000 ML IV PRN (17:30)
[2021-04-18] MEDS ORDERED: ANTACID SUSP 30 ML UDC (MYLANTA) PO PRN (17:30)
[2021-04-18] MEDS ORDERED: SENNA W/DOCUSATE (SENOKOT S) TABLET PO PRN (17:30)
[2021-04-18] MEDS ORDERED: MELATONIN 3 MG TABLET PO PRN (17:30)
[2021-04-18] MEDS ORDERED: D5 1/2 NS 1000 ML IV SOLUTION 1,000 ML IV PRN (17:30)
[2021-04-18] MEDS ORDERED: THIAMINE IV SCH (18:00)
[2021-04-18] MEDS ORDERED: MAGNESIUM SULFATE IV SCH (18:00)
[2021-04-18] MEDS ORDERED: THIAMINE INJECTION 100 MG, FOLIC ACID INJECTION 1 MG, MAGNESIUM SULFATE 2 GM, VITAMIN M... IV SCH ×5 (18:00)
[2021-04-18] MEDS ORDERED: [UNRECOGNIZED DRUG - OTHER] IV SCH (18:00)
[2021-04-18] MEDS ORDERED: VITAMIN MULTI IV SCH (18:00)
[2021-04-18] MEDS: ENOXAPARIN 40 MG/0.4 ML (LOVENOX) SYR SC SCH (18:17)
[2021-04-18] MEDS: ACETAMINOPHEN 325 MG TABLET PO PRN (18:17)
[2021-04-18] MEDS ORDERED: NS IV 1000 ML 1,000 ML IV SCH (18:30)
[2021-04-18] MEDS ORDERED: NICOTINE 14 MG (NICODERM) PATCH TD NR (18:30)
--- NOTE | 2021-04-18 18:33 | History & Physical-Hospitalist ---
History of Present Illness Source: patient Exam Limitations: no limitations Date Seen 04/18/21 Time Seen by a Provider: 18:15 Attending Physician Sena Rodriguez MD PCP No,Local Physician Referring Physician Date of Admission Apr 18, 2021 at 16:43 Home Medications & Allergies Home Medications Reviewed patient Home Medication Reconciliation performed by pharmacy medication reconciliations poultry field service technician and/or nursing. Patients Allergies have been reviewed. Allergies Allergies Coded Allergies No Known Drug Allergies (Unverified01/03/21) Past Lttjrfz-Cdfwap-Qfdemk Hx Patient Social History Tobacco Use?: Yes Smokeless type used: Chew Smokeless Tobacco Frequency: Current Everyday User Substance use?: No Alcohol Use?: Yes Alcohol type: Beer (one case per day) Alcohol Frequency: Daily Current Status Primary Language: Vietnamese Past Medical History Hypertension Family Medical History No Pertinent Family Hx Review of Systems Constitutional: no symptoms reported EENTM: no symptoms reported Respiratory: no symptoms reported Cardiovascular: no symptoms reported Gastrointestinal: constipation Genitourinary: no symptoms reported Musculoskeletal: no symptoms reported Skin: no symptoms reported Psychiatric/Neurological: No Symptoms Reported Physical Exam Physical Exam Vital Signs Vital Signs - First Documented 04/18/21 15:15 Pulse 112 Resp 19 B/P (MAP) 127/90 (102) Pulse Ox 95 O2 Delivery Room Air Capillary Refill : Height, Weight, BMI Height: '" Weight: lbs. oz. kg; 232.26 BMI Method: General Appearance: No Apparent Distress, Obese HEENT: PERRL/EOMI, Pharynx Normal Neck: Normal Inspection, Supple Respiratory: Lungs Clear, Normal Breath Sounds, No Respiratory Distress Cardiovascular: No Murmur, Tachycardia Gastrointestinal: Normal Bowel Sounds, Non Tender, Soft; No Distended Extremity: Normal Inspection, Non Tender, Pedal Edema Neurologic/Psychiatric: Alert, Oriented x3, No Motor/Sensory Deficits, Other (tremulous) Skin: Normal Color, Warm/Dry Results Results/Procedures Labs Patient resulted labs reviewed. Imaging: Reviewed Imaging Report Assessment/Plan Admission Diagnosis Acute alcohol intoxication in alcoholism Admission Status: Inpatient Order (span 2 midnights) Reason for Inpatient Admission: Alcohol withdrawal Assessment and Plan Acute alcohol intoxication in alcoholism Alcohol withdrawal [facility] protocol IV fluids Multivitamins Consult TeleICU Tobacco abuse Nicotine patch Obesity Clinically significant, no acute management needs DVT prophylaxis: Lovenox Diagnosis/Problems Diagnosis/Problems (1) Acute alcoholic intoxication in alcoholism (blood level over 0.3) Status: Acute Qualifiers: Complication of substance-induced condition: uncomplicated Qualified Codes: F10.220 - Alcohol dependence with intoxication, uncomplicated (2) Alcohol withdrawal Status: Acute Qualifiers: Complication of substance-induced condition: uncomplicated Qualified Codes: F10.230 - Alcohol dependence with withdrawal, uncomplicated (3) Tobacco abuse Status: Chronic (4) Obesity Status: Chronic SENA RODRIGUEZ MD Apr 18, 2021 18:33
--- NOTE | 2021-04-18 18:44 | Tele-ICU Progress Note ---
Progress Note Available chart/ vitals / labs / Images reviewed no ER noteds from H&P draft: Acute alcohol intoxication in alcoholism Alcohol withdrawal -[facility] protocol imn place - cont hydration - labs pending Focused Exam Height, Weight, BMI Height: '" Weight: lbs. oz. kg; 232.26 BMI Method: ANGELITA CARDOSO MD Apr 18, 2021 18:43
[2021-04-18 19:00] VITALS: BP 142/99
[2021-04-18] MEDS: LORazepam 1 MG (ATIVAN) TAB PO PRN (19:21)
[2021-04-18] MEDS: MAGNESIUM OXIDE (MAG-OX)400 MG TAB PO SCH (19:21)
[2021-04-18 20:00] VITALS: BP 151/110
[2021-04-18 21:00] VITALS: BP 154/100
[2021-04-18] MEDS: LORazepam INJ 2 MG/ML (ATIVAN) VIAL IV PRN (21:01)
[2021-04-18 22:00] VITALS: BP 141/75
[2021-04-18 23:00] VITALS: BP 149/95
[2021-04-19] VITALS (25 sets, daily range): BP systolic 124–170; BP diastolic 86–115
[2021-04-19] MEDS: LORazepam INJ 2 MG/ML (ATIVAN) VIAL IV PRN (00:57)
[2021-04-19 03:18] LABS: EOSINOPHILS % (AUTO) 0 % (0-10)
[2021-04-19 03:20] LABS: BASOPHILS % (AUTO) 1 % (0-10); HEMATOCRIT 37 % (40-54); HEMOGLOBIN 12.3 g/dL (13.3-17.7); LYMPHOCYTES # (AUTO) 1.9 10^3/uL (1.0-4.0); LYMPHOCYTES % (AUTO) 30 % (12-44); MEAN CORPUSCULAR HEMOGLOBIN 31 pg (25-34); MEAN CORPUSCULAR HGB CONC 33 g/dL (32-36); MEAN CORPUSCULAR VOLUME 94 fL (80-99); MEAN PLATELET VOLUME 9.6 fL (9.0-12.2); MONOCYTES # (AUTO) 0.7 10^3/uL (0.0-1.0); MONOCYTES % (AUTO) 11 % (0-12); NEUTROPHILS # (AUTO) 3.6 10^3/uL (1.8-7.8); NEUTROPHILS % (AUTO) 57 % (42-75); PLATELET COUNT 133 10^3/uL (130-400); WHITE BLOOD COUNT 6.3 10^3/uL (4.3-11.0)
[2021-04-19 03:25] LABS: CALCIUM 8.5 MG/DL (8.5-10.1)
[2021-04-19 03:29] LABS: CREATININE SERUM 0.71 MG/DL (0.60-1.30); PHOSPHORUS 3.9 MG/DL (2.3-4.7)
[2021-04-19 03:32] LABS: MAGNESIUM 2.3 MG/DL (1.6-2.4)
[2021-04-19] MEDS: MAGNESIUM 1 GM/100 ML IVPB 100 ML IV SCH (03:34)
[2021-04-19] MEDS: POTASSIUM CL 10MEQ/50ML IVPB 50 ML IV SCH (03:34)
[2021-04-19] MEDS: KCL 20 MEQ TAB (K-DUR) PO SCH (03:34)
[2021-04-19] MEDS: MULTIVIT W/MINERALS TAB (THERAGRAN M) PO SCH (05:28)
[2021-04-19] MEDS: THIAMINE 100 MG (VITAMIN B-1) TAB PO SCH (05:28)
[2021-04-19] MEDS: ACETAMINOPHEN 325 MG TABLET PO PRN ×2 (05:44→17:15)
[2021-04-19 08:09] LABS: MAGNESIUM 2.3 MG/DL (1.6-2.4); PHOSPHORUS 3.9 MG/DL (2.3-4.7)
[2021-04-19] MEDS: MAGNESIUM OXIDE (MAG-OX)400 MG TAB PO SCH ×2 (08:55→20:51)
[2021-04-19] MEDS: NICOTINE 14 MG (NICODERM) PATCH TD SCH (08:55)
[2021-04-19] MEDS: NICOTINE PATCH REMOVAL TP SCH (08:55)
[2021-04-19] MEDS: FOLIC ACID 1 MG TAB PO SCH (08:55)
[2021-04-19] MEDS ORDERED: IBUP-2473 PO (09:17)
[2021-04-19] MEDS ORDERED: CHOL500050 PO (09:17)
[2021-04-19] MEDS ORDERED: ASCO-262 PO (09:18)
[2021-04-19] MEDS ORDERED: POLY30DR6 OU (09:21)
--- NOTE | 2021-04-19 09:34 | Physical Therapy Evaluation ---
PT Evaluation-General Medical Diagnosis Admission Date Apr 18, 2021 at 16:43 Medical Diagnosis: Acute alcohol intoxication in alcoholism Onset Date: Apr 18, 2021 Therapy Diagnosis Therapy Diagnosis: impaired mobility, strength, endurance, balance Precautions Precautions/Isolations: Seizure, Fall Prevention, Standard Precautions Referral Physician: Luis Reason for Referral: Evaluation/Treatment Medical History Pertinent Medical History: Alcoholism, Smoking Reviewed History: Yes Social History Home: Single Level Current Living Status: Alone Entry Into Home: Stairs Without Railing PT Steps Into Home: 2 Prior Prior Level of Function SCALE: Activities may be completed with or without assistive devices. 1-Jdkdfwyjlu-qdnipsu completes the activity by him/herself with no assistance from a helper. 5-Set-up or Clean-up Assistance-helper sets up or cleans up; patient completes activity. [place] assists only prior to or following the activity. 4-Supervision or Touching Assistance-helper provides verbal cues and/or touching/steadying and/or contact guard assistance as patient completes activity. Assistance may be provided throughout the activity or intermittently. 3-Partial/Moderate Assistance-helper does LESS THAN HALF the effort. [place] lifts, holds or supports trunk or limbs, but provides less than half the effort. 2-Substantial/Maximal Assistance-helper does MORE THAN HALF the effort. [place] lifts or holds trunk or limbs and provides more than half the effort. 0-Bscpmmilr-wqcyjb does ALL the effort. Patient does none of the effort to complete the activity. Or, the assistance of 2 or more helpers is required for the patient to complete the activity. If activity was not attempted, code reason: 7-Patient Refused. 9-Not Applicable-not attempted and the patient did not perform the activity before the current illness, exacerbation or injury. 10-Not Attempted due to Environmental Limitations-(lack of equipment, weather restraints, etc.). 88-Not Attempted due to Medical Conditions or Safety Concerns. Bed Mobility: 6 Transfers (B,C,W/C): 6 Gait: 6 Stairs: 6 Indoor Mobility (Ambulation): Independent Stairs: Independent PT Evaluation-Current Subjective Patient in bed pre tx, agrees to PT, has no complaints of pain. Pt/Family Goals to be independent at home Objective Patient Orientation: Person, Place, Situation ROM/Strength ROM Lower Extremities WNL Strength Lower Extremities LLE (hip flexion 3/5, knee flexion 4/5, knee extension 4-/5, dorsiflexion 5/5), RLE (hip flexion 3/5, knee flexion 4/5, knee extension 4-/5, dorsiflexion 5/5) Sensory Vision: Functional Hearing: Functional Sensation Right Lower Extremit: Intact Sensation Left Lower Extremity: Intact Transfers Roll Left to Right (QC): 6 Lying to Sitting/Side of Bed(Q: 4 Sit to Stand (QC): 4 Chair/Fqf-nd-Iwbyx Xfer(QC): 4 CGA for sit to stand and transfers, patient is shaky and unsteady Gait Does the Patient Walk?: Yes Mode of Locomotion: Walk Anticipated Mode of Locomotion: Walk Distance: 5' Gait Assistive Device: FWW Comments/Gait Description no LOB but shaky and unsteady Balance Sitting Static: Normal Sitting Dynamic: Normal Standing Static: Fair Standing Dynamic: Fair Assessment/Needs Patient in bedside chair with chair alarm on and telesitter in room, patient has impaired mobility, strength, endurance, balance. Patients resting HR is 131 bpm, O2 99%, BP 153/106. Because of HR and BP patient not pushed to perform any further physical activity. Rehab Potential: Fair PT Residential Goals Residential Goals PT Residential Goals Time Frame: Apr 26, 2021 Roll Left & Right (QC): 6 Sit to Lying (QC): 6 Lying-Sitting on Side/Bed(QC): 6 Sit to Stand (QC): 4 (SBA) Chair/Wlk-fb-Yxfit Xfer(QC): 4 (SBA) Walk 10 feet (QC): 4 (SBA) Walk 50ft with 2 Turns (QC): 4 (SBA) Walk 150 ft (QC): 4 (SBA) PT Plan Problem List Problem List: Activity Tolerance, Functional Strength, Safety, Balance, Gait, Transfer, Bed Mobility, ROM Treatment/Plan Treatment Plan: Continue Plan of Care Treatment Plan: Bed Mobility, Education, Functional Activity Saniya, Functional Strength, Gait, Safety, Therapeutic Exercise, Transfers Treatment Duration: Apr 26, 2021 Frequency: 6 times per week Estimated Hrs Per Day: .25 hour per day Patient and/or Family Agrees t: Yes Safety Risks/Education Patient Education: Gait Training, Transfer Techniques, Correct Positioning, Safety Issues Teaching Recipient: Patient Teaching Methods: Demonstration, Discussion Response to Teaching: Reinforcement Needed Discharge Recommendations Plan Patient will perform bed mobility and transfer training, balance and endurance training, functional strengthening, stair training, gait training, and education, to improve functional mobility and independence at home. Therapy Discharge Recommendati: Scheduled Assistance, Home & Family Time/GCodes Time In: 910 Time Out: 924 Total Billed Treatment Time: 13 Total Billed Treatment 1 visit EL 13' KIM CORDERO PT Apr 19, 2021 09:34
[2021-04-19] MEDS: LORazepam 1 MG (ATIVAN) TAB PO PRN ×2 (10:13→19:28)
--- NOTE | 2021-04-19 10:20 | Tele-ICU Progress Note ---
Subjective Date Seen by a Provider: Apr 19, 2021 Time Seen by a Provider: 10:16 Subjective/Events-last exam Patient with history of alcohol withdrawal syndrome. He apparently had decent night last night and required only 1 dose of Ativan. Today his a CIWA scale is 4. Overall doing well and cooperative for RN. His blood pressure however is high at 160/112. I have started him on amlodipine [place] and continue to mon itor his blood pressure. Available chart/vitals/labs and images reviewed and a video visit made. Rest of the physical exam per RN. Review of Systems ROS PER RN Sepsis Event Evaluation Height, Weight, BMI Height: '" Weight: lbs. oz. kg; 39.49 BMI Method: Exam Exam Patient acknowledged, consented, and participated in this virtual visit which was conducted using real time audio/video Vital Signs Date Time Temp Pulse Resp B/P (MAP) Pulse Ox O2 Delivery O2 Flow Rate FiO2 04/19/21 09:00 126 16 134/102 (113) 97 Nasal Cannula 2.00 04/19/21 08:00 37.0 04/19/21 08:00 107 8 168/112 (130) 99 Nasal Cannula 2.00 04/19/21 08:00 95 Room Air 0.00 04/19/21 07:00 116 04/19/21 07:00 107 11 165/115 (132) 96 Nasal Cannula 2.00 04/19/21 06:00 98 18 170/110 (132) 96 Nasal Cannula 2.00 04/19/21 05:24 101 17 165/106 (127) 100 Nasal Cannula 2.00 04/19/21 05:00 98 19 161/115 (126) 100 Nasal Cannula 2.00 04/19/21 04:00 86 12 157/107 (132) 94 Nasal Cannula 2.00 04/19/21 03:15 92 Nasal Cannula 2.00 04/19/21 03:00 37.0 Nasal Cannula 2.00 04/19/21 03:00 82 25 144/99 (113) 94 Nasal Cannula 2.00 04/19/21 02:20 76 23 150/96 (122) 96 Nasal Cannula 2.00 04/19/21 01:00 80 25 154/94 (114) 98 Nasal Cannula 2.00 04/19/21 01:00 80 04/19/21 00:00 90 22 146/93 (110) 94 Nasal Cannula 2.00 04/18/21 23:35 97 Nasal Cannula 2.00 04/18/21 23:10 36.8 Nasal Cannula 2.00 04/18/21 23:00 103 39 149/95 (113) 99 Nasal Cannula 2.00 04/18/21 22:00 81 14 141/75 (101) 97 Nasal Cannula 2.00 04/18/21 21:30 Nasal Cannula 2.00 04/18/21 21:00 101 35 154/100 (118) 95 Room Air 04/18/21 20:00 105 151/110 (127) 96 Room Air 04/18/21 20:00 36.4 04/18/21 19:10 95 Room Air 04/18/21 19:00 115 04/18/21 19:00 109 22 142/99 (113) 95 Room Air 04/18/21 17:26 114 04/18/21 17:00 95 Room Air 04/18/21 15:15 112 19 127/90 (102) 95 Room Air I & O 04/19/21 07:00 Intake Total 2250 ml Output Total 2350 ml Balance -100 ml Height & Weight Height: '" Weight: lbs. oz. kg; 39.49 BMI Method: General Appearance: No Apparent Distress, Obese HEENT: PERRL/EOMI, Pharynx Normal Neck: Normal Inspection, Supple Respiratory: Lungs Clear, Normal Breath Sounds, No Respiratory Distress Cardiovascular: No Murmur, Tachycardia Capillary Refill: Less Than 3 Seconds Extremity: Normal Inspection, Non Tender, Pedal Edema Neurologic/Psychiatric: Alert, Oriented x3, No Motor/Sensory Deficits, Other (tremulous) Skin: Normal Color, Warm/Dry Other comments PE PER RN Results Lab Laboratory Tests 04/19/21 03:00 Assessment/Plan Assessment/Plan 1. History of chronic alcohol abuse. 2. Alcohol withdrawal syndrome. Recommendations we will continue CIWA protocol. Monitor electrolytes and replace as needed 3. We will supplement thiamine and folic acid. 4. Hydrate patient. 5. DVT prophylaxis with Lovenox. Critical Care: Critically Ill Patient Time spent with patient (mins): 20 TOBIAS VENEGAS MD Apr 19, 2021 10:20
--- NOTE | 2021-04-19 11:05 | Pulmonary Progress Note ---
Subjective Subjective/Events-last exam The patient is resting comfortably this morning. He is complaining of some tremors and weakness but denies an seizure activity, fever, chills, nausea, vomiting, shortness of breath, or chest pain. Review of Systems General: No Chills HEENT: No Head Aches, No Visual Changes Pulmonary: No Dyspnea, No Cough, No Pleuritic Chest Pain Cardiovascular: No: Chest Pain, Palpitations, Orthopnea Gastrointestinal: No: Nausea, Vomiting, Abdominal Pain Genitourinary: No Frequency Musculoskeletal: No: other, neck pain, shoulder pain, arm pain, back pain, hand pain, leg pain, foot pain Neurological: Weakness, Other (tremors) Exam Exam Patient acknowledged, consented, and participated in this virtual visit which w as conducted using real time audio/video Vital Signs Date Time Temp Pulse Resp B/P (MAP) Pulse Ox O2 Delivery O2 Flow Rate FiO2 04/19/21 09:00 126 16 134/102 (113) 97 Nasal Cannula 2.00 04/19/21 08:00 37.0 04/19/21 08:00 107 8 168/112 (130) 99 Nasal Cannula 2.00 04/19/21 08:00 95 Room Air 0.00 04/19/21 07:00 116 04/19/21 07:00 107 11 165/115 (132) 96 Nasal Cannula 2.00 04/19/21 06:00 98 18 170/110 (132) 96 Nasal Cannula 2.00 04/19/21 05:24 101 17 165/106 (127) 100 Nasal Cannula 2.00 04/19/21 05:00 98 19 161/115 (126) 100 Nasal Cannula 2.00 04/19/21 04:00 86 12 157/107 (132) 94 Nasal Cannula 2.00 04/19/21 03:15 92 Nasal Cannula 2.00 04/19/21 03:00 37.0 Nasal Cannula 2.00 04/19/21 03:00 82 25 144/99 (113) 94 Nasal Cannula 2.00 04/19/21 02:20 76 23 150/96 (122) 96 Nasal Cannula 2.00 04/19/21 01:00 80 25 154/94 (114) 98 Nasal Cannula 2.00 04/19/21 01:00 80 04/19/21 00:00 90 22 146/93 (110) 94 Nasal Cannula 2.00 04/18/21 23:35 97 Nasal Cannula 2.00 04/18/21 23:10 36.8 Nasal Cannula 2.00 04/18/21 23:00 103 39 149/95 (113) 99 Nasal Cannula 2.00 04/18/21 22:00 81 14 141/75 (101) 97 Nasal Cannula 2.00 04/18/21 21:30 Nasal Cannula 2.00 04/18/21 21:00 101 35 154/100 (118) 95 Room Air 04/18/21 20:00 105 151/110 (127) 96 Room Air 04/18/21 20:00 36.4 04/18/21 19:10 95 Room Air 04/18/21 19:00 115 04/18/21 19:00 109 22 142/99 (113) 95 Room Air 04/18/21 17:26 114 04/18/21 17:00 95 Room Air 04/18/21 15:15 112 19 127/90 (102) 95 Room Air I & O 04/19/21 06:59 Intake Total 2250 ml Output Total 2350 ml Balance -100 ml Height & Weight Height: '" Weight: lbs. oz. kg; 39.49 BMI Method: General Appearance: No Apparent Distress, Obese HEENT: PERRL/EOMI, Pharynx Normal Neck: Normal Inspection, Supple Respiratory: Lungs Clear, Normal Breath Sounds, No Respiratory Distress Cardiovascular: No Murmur, Tachycardia Capillary Refill: Less Than 3 Seconds Extremity: Normal Inspection, Non Tender, Pedal Edema Neurologic/Psychiatric: Alert, Oriented x3, No Motor/Sensory Deficits, Other (tremulous) Skin: Normal Color, Warm/Dry Results Lab Laboratory Tests 04/19/21 03:00 Assessment/Plan Assessment/Plan Alchohol withdrawal * Patient states his last drink was yesterday morning (04/18) * He notes a Hx of withdrawal seizures in the past * [facility] protocol Hypertension * Patient states that he took metoprolol at home but has no refills from his PCP * Started on almodipine RAINER OTERO Apr 19, 2021 11:05
[2021-04-19] MEDS: amLODIPine 5 MG (NORVASC) TAB PO SCH (11:17)
--- NOTE | 2021-04-19 13:49 | Occupational Therapy Eval ---
OT Evaluation-General/PLF Medical Diagnosis Admission Date Apr 18, 2021 at 16:43 Medical Diagnosis: Acute alcohol intoxication in alcoholism Onset Date: Apr 18, 2021 Therapy Diagnosis Therapy Diagnosis: Impaired balance, safety, endurance Precautions Precautions/Isolations: Seizure, Fall Prevention, Standard Precautions Referral Physician: Luis Cortez Reason: Evaluation/Treatment Medical History Pertinent Medical History: Alcoholism, Smoking Current History Pt with history of alcohol withdrawal syndrome. He reports indep with adls and iadls except grocery shopping secondary to not driving. He has a friend who helps with transportation and groceries. He was not using any AD prior to admission. Reviewed History: Yes Social History Home: Single Level Current Living Status: Alone Entry Into Home: Stairs Without Railing Steps Into Home: 2 ADL-Prior Level of Function SCALE: Activities may be completed with or without assistive devices. 7-Nlmljymtwp-xrdyycn completes the activity by him/herself with no assistance from a helper. 5-Set-up or Clean-up Assistance-helper sets up or cleans up; patient completes activity. [place] assists only prior to or following the activity. 4-Supervision or Touching Assistance-helper provides verbal cues and/or touching/steadying and/or contact guard assistance as patient completes activity. Assistance may be provided throughout the activity or intermittently. 3-Partial/Moderate Assistance-helper does LESS THAN HALF the effort. [place] lifts, holds or supports trunk or limbs, but provides less than half the effort. 2-Substantial/Maximal Assistance-helper does MORE THAN HALF the effort. [place] lifts or holds trunk or limbs and provides more than half the effort. 3-Jezwdfssq-mlzfep does ALL the effort. Patient does none of the effort to complete the activity. Or, the assistance of 2 or more helpers is required for the patient to complete the activity. If activity was not attempted, code reason: 7-Patient Refused. 9-Not Applicable-not attempted and the patient did not perform the activity before the current illness, exacerbation or injury. 10-Not Attempted due to Environmental Limitations-(lack of equipment, weather restraints, etc.). 88-Not Attempted due to Medical Conditions or Safety Concerns. Self Care: Independent Functional Cognition: Independent DME/Equipment: Tub/Shower Drive Self: No OT Current Status Subjective Denies pain, agreeable to treatment. Appearance Left sitting in bed, all needs within reach. Mental Status/Objective Patient Orientation: Person, Place, Situation Attachments: IV, Oxygen, Telemetry Current Upper Extremity ROM R shoulder: ~3/4 AROM L shoulder: Full AROM Elbow-distally WNL Mild shakiness noted, probably from withdrawal. Upper Extremity Strength 3+/5 grossly ADL-Treatment Eating (QC): 6 Oral Hygiene (QC): 4 Pt sitting upright in bed (unsupported sitting) eating lunch at OT arrival. At rest, pt's HR: 141 bpm and blood pressure: 152/101. Due to abnormal vitals, no OOB/EOB activities performed. Per PT note, pt was able to transfer and ambulate 5 feet with CGA yet was very unsteady and shaky. OT to continue to assess adls during next visit. Education OT Patient Education: Disease process, Purpose of tx/functional activities, Reviewed precautions, Safety issues Teaching Recipient: Patient Teaching Methods: Discussion Response to Teaching: Verbalize Understanding OT Skilled Nursing Goals Skilled Nursing Goals Time Frame: May 04, 2021 Oral Hygiene (QC): 6 Toileting Hygiene (QC): 4 Upper Body Dressing (QC): 5 Lower Body Dressing (QC): 5 On/Off Footwear (QC): 4 1=Demonstrate adherence to instructed precautions during ADL tasks. 2=Patient will verbalize/demonstrate understanding of assistive devices/modifications for ADL. 3=Patient will improve strength/tolerance for activity to enable patient to perform ADL's. OT Education/Plan Problem List/Assessment Assessment: Decreased Activ Tolerance, Decreased Safety Aware, Decreased UE Strength, Impaired Coordination, Impaired Funct Balance, Impaired I ADL's, Impaired Self-Care Skills Discharge Recommendations Plan/Recommendations: Continue POC Therapy Discharge Recommendati: Other, See Comments Comment Ongoing assessment Treatment Plan/Plan of Care Treatment,Training & Education: Yes Patient would benefit from OT for education, treatment and training to promote independence in ADL's, mobility, safety and/or upper extremity function for ADL's. Plan of Care: ADL Retraining, Functional Mobility, Group Exercise/Act as Ind, UE Funct Exercise/Act Treatment Duration: May 04, 2021 Frequency: 3 times per week Estimated Hrs Per Day: .25 hour per day Agreement: Yes Rehab Potential: Fair 3-5x/week Time/GCodes Start Time: 13:34 Stop Time: 13:43 Total Time Billed (hr/min): 9 Billed Treatment Time 1 visit Rita Bustillos OT Apr 19, 2021 13:49
[2021-04-19] MEDS ORDERED: cloNIDine 0.1 MG (CATAPRES) TAB PO NR (17:45)
--- NOTE | 2021-04-19 17:45 | Progress Note - Hospitalist ---
Subjective HPI/CC On Admission Date Seen by Provider: Apr 19, 2021 Time Seen by Provider: 10:00 Subjective/Events-last exam He is feeling weak. He is shaky. He denies headaches. He denies nausea. His head feels a bit "cloudy". Objective Exam Vital Signs Vital Signs Date Time Temp Pulse Resp B/P (MAP) Pulse Ox O2 Delivery O2 Flow Rate FiO2 04/19/21 16:33 36.1 04/19/21 16:00 97 Room Air 04/19/21 15:00 114 11 153/100 (116) 2.00 Capillary Refill : Less Than 3 Seconds General Appearance: No Apparent Distress, Obese Respiratory: Lungs Clear, Normal Breath Sounds, No Respiratory Distress Cardiovascular: Regular Rate, Rhythm, No Edema, No Murmur Gastrointestinal: Normal Bowel Sounds, Non Tender, Soft Extremity: Normal Inspection, Non Tender, No Pedal Edema Neurologic/Psychiatric: Alert, Oriented x3, Normal Mood/Affect, Other (tremulous) Skin: Normal Color, Warm/Dry Results/Procedures Lab Laboratory Tests 04/19/21 03:00 Patient resulted labs reviewed. Imaging: Reviewed Imaging Report Assessment/Plan Assessment and Plan Assess & Plan/Chief Complaint Acute alcohol intoxication in alcoholism Alcohol withdrawal [facility] protocol IV fluids Multivitamins TeleICU following Hypertension Begin Clonidine Tobacco abuse Nicotine patch Obesity Clinically significant, no acute management needs DVT prophylaxis: Lovenox Critical Care Critically Ill Patient Diagnosis/Problems Diagnosis/Problems (1) Acute alcoholic intoxication in alcoholism (blood level over 0.3) Status: Acute Qualifiers: Complication of substance-induced condition: uncomplicated Qualified Codes: F10.220 - Alcohol dependence with intoxication, uncomplicated (2) Alcohol withdrawal Status: Acute Qualifiers: Complication of substance-induced condition: uncomplicated Qualified Codes: F10.230 - Alcohol dependence with withdrawal, uncomplicated (3) Tobacco abuse Status: Chronic (4) Obesity Status: Chronic (5) HTN (hypertension) Status: Acute ADRIÁN RODRIGUEZ MD Apr 19, 2021 17:45
[2021-04-19] MEDS: ENOXAPARIN 40 MG/0.4 ML (LOVENOX) SYR SC SCH (19:28)
[2021-04-19] MEDS: cloNIDine 0.1 MG (CATAPRES) TAB PO SCH (20:51)
[2021-04-20] VITALS (17 sets, daily range): BP systolic 107–143; BP diastolic 69–103
[2021-04-20 04:47] LABS: CALCIUM 8.8 MG/DL (8.5-10.1)
[2021-04-20 04:51] LABS: CREATININE SERUM 0.75 MG/DL (0.60-1.30)
[2021-04-20 04:53] LABS: BASOPHILS % (AUTO) 1 % (0-10); EOSINOPHILS # (AUTO) 0.1 10^3/uL (0.0-0.3); EOSINOPHILS % (AUTO) 1 % (0-10); HEMATOCRIT 37 % (40-54); HEMOGLOBIN 12.4 g/dL (13.3-17.7); LYMPHOCYTES # (AUTO) 1.7 10^3/uL (1.0-4.0); LYMPHOCYTES % (AUTO) 41 % (12-44); MAGNESIUM 2.1 MG/DL (1.6-2.4); MEAN CORPUSCULAR HEMOGLOBIN 32 pg (25-34); MEAN CORPUSCULAR HGB CONC 33 g/dL (32-36); MEAN CORPUSCULAR VOLUME 96 fL (80-99); MEAN PLATELET VOLUME 9.6 fL (9.0-12.2); MONOCYTES # (AUTO) 0.6 10^3/uL (0.0-1.0); MONOCYTES % (AUTO) 14 % (0-12); NEUTROPHILS # (AUTO) 1.7 10^3/uL (1.8-7.8); NEUTROPHILS % (AUTO) 42 % (42-75); PLATELET COUNT 136 10^3/uL (130-400); WHITE BLOOD COUNT 4.2 10^3/uL (4.3-11.0)
[2021-04-20 04:56] LABS: ALBUMIN 3.3 GM/DL (3.2-4.5)
[2021-04-20 04:59] LABS: TOTAL PROTEIN 5.9 GM/DL (6.4-8.2)
[2021-04-20] MEDS: POTASSIUM CL 10MEQ/50ML IVPB 50 ML IV SCH (05:00)
[2021-04-20] MEDS: MAGNESIUM 1 GM/100 ML IVPB 100 ML IV SCH (05:00)
[2021-04-20] MEDS: KCL 20 MEQ TAB (K-DUR) PO SCH (05:01)
[2021-04-20 05:02] LABS: PHOSPHORUS 4.8 MG/DL (2.3-4.7)
[2021-04-20] MEDS: THIAMINE 100 MG (VITAMIN B-1) TAB PO SCH (05:48)
[2021-04-20] MEDS: MULTIVIT W/MINERALS TAB (THERAGRAN M) PO SCH (05:48)
[2021-04-20] MEDS: FOLIC ACID 1 MG TAB PO SCH (08:34)
[2021-04-20] MEDS: MAGNESIUM OXIDE (MAG-OX)400 MG TAB PO SCH ×2 (08:34→19:50)
[2021-04-20] MEDS: cloNIDine 0.1 MG (CATAPRES) TAB PO SCH ×2 (08:35→13:36)
[2021-04-20] MEDS: NICOTINE 14 MG (NICODERM) PATCH TD SCH (08:35)
[2021-04-20] MEDS: amLODIPine 5 MG (NORVASC) TAB PO SCH (08:35)
[2021-04-20] MEDS: NICOTINE PATCH REMOVAL TP SCH (08:35)
--- NOTE | 2021-04-20 10:33 | Tele-ICU Progress Note ---
Subjective Date Seen by a Provider: Apr 20, 2021 Time Seen by a Provider: 10:30 Subjective/Events-last exam patient today awake, alert and has mid anxiety but not requiring any prn meds. tachycrdic with hr of 119/mt.Video visit made and d/w pt and RN. Review of Systems ROS PER RN Sepsis Event Evaluation Height, Weight, BMI Height: '" Weight: lbs. oz. kg; 39.49 BMI Method: Exam Exam Patient acknowledged, consented, and participated in this virtual visit which was conducted using real time audio/video Vital Signs Date Time Temp Pulse Resp B/P (MAP) Pulse Ox O2 Delivery O2 Flow Rate FiO2 04/20/21 10:00 108 27 136/92 (107) 94 Nasal Cannula 2.00 04/20/21 09:00 112 19 143/98 (113) 96 Nasal Cannula 2.00 04/20/21 08:39 Room Air 04/20/21 08:29 36.8 04/20/21 08:27 Room Air 04/20/21 08:00 123 10 95 Nasal Cannula 2.00 04/20/21 07:00 95 04/20/21 07:00 98 20 142/103 (113) 94 Nasal Cannula 2.00 04/20/21 06:00 86 15 141/97 (112) 97 Nasal Cannula 2.00 04/20/21 05:00 91 15 137/95 (109) 99 Nasal Cannula 2.00 04/20/21 04:00 64 15 128/88 (101) 99 Nasal Cannula 2.00 04/20/21 03:25 97 Nasal Cannula 2.00 04/20/21 03:25 36.9 Nasal Cannula 2.00 04/20/21 03:00 61 15 123/90 (101) 100 Nasal Cannula 2.00 04/20/21 02:00 68 17 114/79 (91) 99 Nasal Cannula 2.00 04/20/21 01:00 80 04/20/21 01:00 89 15 128/89 (102) 98 Nasal Cannula 2.00 04/20/21 00:00 67 14 108/77 (87) 98 Nasal Cannula 2.00 04/19/21 23:30 98 Nasal Cannula 2.00 04/19/21 23:00 95 20 126/88 (101) 99 Nasal Cannula 2.00 04/19/21 22:40 36.8 Nasal Cannula 2.00 04/19/21 22:00 107 22 147/102 (117) 94 Room Air 04/19/21 21:00 118 24 131/97 (108) 96 Room Air 04/19/21 20:00 111 28 124/86 (99) 95 Room Air 04/19/21 19:35 96 Room Air 04/19/21 19:30 36.6 Room Air 04/19/21 19:00 118 23 124/93 (103) 97 Nasal Cannula 2.00 04/19/21 19:00 143 04/19/21 18:00 112 12 153/97 (115) 96 Nasal Cannula 2.00 04/19/21 17:00 115 19 138/94 (109) 93 Nasal Cannula 2.00 04/19/21 16:33 36.1 04/19/21 16:00 97 Room Air 04/19/21 16:00 123 27 149/105 (120) 95 Nasal Cannula 2.00 04/19/21 15:00 114 11 153/100 (116) 95 Nasal Cannula 2.00 04/19/21 14:00 133 10 135/96 (106) 94 Nasal Cannula 2.00 04/19/21 13:00 118 04/19/21 13:00 112 11 152/101 (112) 96 Nasal Cannula 2.00 04/19/21 12:58 Nasal Cannula 2.00 04/19/21 12:00 116 16 169/112 (130) 98 Nasal Cannula 2.00 04/19/21 12:00 95 Room Air 0.00 04/19/21 11:10 37.4 04/19/21 11:00 109 21 166/103 (118) 96 Nasal Cannula 2.00 I & O 04/20/21 07:00 Intake Total 2065 ml Output Total 5600 ml Balance -3535 ml Height & Weight Height: '" Weight: lbs. oz. kg; 39.49 BMI Method: General Appearance: No Apparent Distress, Obese HEENT: PERRL/EOMI, Pharynx Normal Neck: Normal Inspection, Supple Respiratory: Lungs Clear, Normal Breath Sounds, No Respiratory Distress Cardiovascular: Regular Rate, Rhythm, No Edema, No Murmur Capillary Refill: Less Than 3 Seconds Extremity: Normal Inspection, Non Tender, No Pedal Edema Neurologic/Psychiatric: Alert, Oriented x3, Normal Mood/Affect, Other (tremulous) Skin: Normal Color, Warm/Dry Other comments pe per attending Results Lab Laboratory Tests 04/19/21 03:00 04/20/21 04:18 Assessment/Plan Assessment/Plan 1. History of chronic alcohol abuse. 2. Alcohol withdrawal syndrome. Recommendations we will continue CIWA protocol. Monitor electrolytes and replace as needed 3. We will supplement thiamine and folic acid. 4. Hydrate patient. 5. DVT prophylaxis with Lovenox. 6. From critical care point of view he may be transferred to medical floor. Critical Care: Critically Ill Patient Time spent with patient (mins): 20 TOBIAS VENEGAS MD Apr 20, 2021 10:33
--- NOTE | 2021-04-20 11:19 | Physical Therapy Daily Note ---
PT Daily Note-Current Subjective Pt. sitting up in bed upon arrival, says he is feeling much better and would like to walk. Mental Status Patient Orientation: Person, Place, Time, Situation Transfers SCALE: Activities may be completed with or without assistive devices. 1-Twbjsxkkup-bqdykid completes the activity by him/herself with no assistance from a helper. 5-Set-up or Clean-up Assistance-helper sets up or cleans up; patient completes activity. [place] assists only prior to or following the activity. 4-Supervision or Touching Assistance-helper provides verbal cues and/or touching/steadying and/or contact guard assistance as patient completes activity. Assistance may be provided throughout the activity or intermittently. 3-Partial/Moderate Assistance-helper does LESS THAN HALF the effort. [place] lifts, holds or supports trunk or limbs, but provides less than half the effort. 2-Substantial/Maximal Assistance-helper does MORE THAN HALF the effort. [place] lifts or holds trunk or limbs and provides more than half the effort. 0-Eqnypbnmo-ouiayn does ALL the effort. Patient does none of the effort to complete the activity. Or, the assistance of 2 or more helpers is required for the patient to complete the activity. If activity was not attempted, code reason: 7-Patient Refused. 9-Not Applicable-not attempted and the patient did not perform the activity before the current illness, exacerbation or injury. 10-Not Attempted due to Environmental Limitations-(lack of equipment, weather restraints, etc.). 88-Not Attempted due to Medical Conditions or Safety Concerns. Lying to Sitting/Side of Bed(Q: 6 Sit to Stand (QC): 4 Gait Training Does the Patient Walk?: Yes Distance: x 100 ft, x 200 ft Walk 10 feet (QC): 4 Walk 50 ft with 2 Turns(QC): 4 Walk 150 ft (QC): 4 Gait Persons Needed: 1 Gait Assistive Device: FWW ambulating back and forth in room Exercises Seated Therapy Exercises: Ankle pumps, Long arc quads, Hip flexion, Hamstring Curls Seated Reps: 20 Treatments gait training, LE exercises Assessment Current Status: Good Progress Pt. had a significant increase in ambulation ability today. He was steady throughout gait in room using FWW and is nearing (I) with transfers. Pt. in bedside chair post session with all needs met. Motivated to increase mobility. O2 sats were 98% on RA during and post session. PT Correction Goals Manager People Goals PT Manager People Goals Time Frame: Apr 26, 2021 Roll Left & Right (QC): 6 Sit to Lying (QC): 6 Lying-Sitting on Side/Bed(QC): 6 Sit to Stand (QC): 4 (SBA) Chair/Njn-lo-Oikfu Xfer(QC): 4 (SBA) Walk 10 feet (QC): 4 (SBA) Walk 50ft with 2 Turns (QC): 4 (SBA) Walk 150 ft (QC): 4 (SBA) PT Plan Treatment/Plan Treatment Plan: Continue Plan of Care Treatment Plan: Bed Mobility, Education, Functional Activity Saniya, Functional Strength, Gait, Safety, Therapeutic Exercise, Transfers Treatment Duration: Apr 26, 2021 Frequency: 6 times per week Estimated Hrs Per Day: .25 hour per day Patient and/or Family Agrees t: Yes Time/GCodes Time In: 1030 Time Out: 1053 Total Billed Treatment Time: 23 Total Billed Treatment 1, GT 15', Ex 8' PAUL CHAMBERLAIN PT Apr 20, 2021 11:19
[2021-04-20] MEDS: ACETAMINOPHEN 325 MG TABLET PO PRN ×2 (13:37→19:50)
--- NOTE | 2021-04-20 14:52 | Progress Note - Hospitalist ---
Subjective HPI/CC On Admission Date Seen by Provider: Apr 20, 2021 Time Seen by Provider: 10:15 Subjective/Events-last exam He is feeling better. He is still weak. His tremors are improving. Objective Exam Vital Signs Vital Signs Date Time Temp Pulse Resp B/P (MAP) Pulse Ox O2 Delivery O2 Flow Rate FiO2 04/20/21 14:00 96 17 125/87 (100) 96 Room Air 04/20/21 12:21 36.5 04/20/21 10:00 Capillary Refill : Less Than 3 Seconds General Appearance: No Apparent Distress, Obese Respiratory: Lungs Clear, Normal Breath Sounds, No Respiratory Distress Cardiovascular: Regular Rate, Rhythm, No Edema, No Murmur Gastrointestinal: Normal Bowel Sounds, Non Tender, Soft, Distended Extremity: Normal Inspection, Non Tender, No Pedal Edema Neurologic/Psychiatric: Alert, Oriented x3, Normal Mood/Affect, Other (slight tremor) Skin: Normal Color, Warm/Dry Results/Procedures Lab Laboratory Tests 04/20/21 04:18 Patient resulted labs reviewed. Imaging: Reviewed Imaging Report Assessment/Plan Assessment and Plan Assess & Plan/Chief Complaint Acute alcohol intoxication in alcoholism Alcohol withdrawal [facility] protocol IV fluids Multivitamins Requiring minimal Ativan Transfer to floor Hypertension Transition to Metoprolol Tobacco abuse Nicotine patch Obesity Clinically significant, no acute management needs DVT prophylaxis: Lovenox Diagnosis/Problems Diagnosis/Problems (1) Acute alcoholic intoxication in alcoholism (blood level over 0.3) Status: Acute Qualifiers: Complication of substance-induced condition: uncomplicated Qualified Codes: F10.220 - Alcohol dependence with intoxication, uncomplicated (2) Alcohol withdrawal Status: Acute Qualifiers: Complication of substance-induced condition: uncomplicated Qualified Codes: F10.230 - Alcohol dependence with withdrawal, uncomplicated (3) Tobacco abuse Status: Chronic (4) Obesity Status: Chronic (5) HTN (hypertension) Status: Acute ADRIÁN RODRIGUEZ MD Apr 20, 2021 14:52
[2021-04-20] MEDS ORDERED: meTOproloL SUCCINATE 50 MG (TOPROL XL) TAB PO SCH (15:00)
[2021-04-20] MEDS: ENOXAPARIN 40 MG/0.4 ML (LOVENOX) SYR SC SCH (17:02)
[2021-04-20] MEDS: LORazepam 1 MG (ATIVAN) TAB PO PRN (23:02)
[2021-04-21 04:15] VITALS: BP 119/79
[2021-04-21 04:33] LABS: BASOPHILS % (AUTO) 1 % (0-10); HEMOGLOBIN 12.2 g/dL (13.3-17.7); LYMPHOCYTES # (AUTO) 1.3 10^3/uL (1.0-4.0); MEAN CORPUSCULAR VOLUME 97 fL (80-99); PLATELET COUNT 137 10^3/uL (130-400)
[2021-04-21 04:35] LABS: EOSINOPHILS # (AUTO) 0.1 10^3/uL (0.0-0.3); EOSINOPHILS % (AUTO) 2 % (0-10); HEMATOCRIT 37 % (40-54); LYMPHOCYTES % (AUTO) 34 % (12-44); MEAN CORPUSCULAR HEMOGLOBIN 32 pg (25-34); MEAN CORPUSCULAR HGB CONC 33 g/dL (32-36); MEAN PLATELET VOLUME 9.9 fL (9.0-12.2); MONOCYTES # (AUTO) 0.5 10^3/uL (0.0-1.0); MONOCYTES % (AUTO) 12 % (0-12); NEUTROPHILS # (AUTO) 1.9 10^3/uL (1.8-7.8); NEUTROPHILS % (AUTO) 50 % (42-75); WHITE BLOOD COUNT 3.8 10^3/uL (4.3-11.0)
[2021-04-21 04:55] LABS: ALBUMIN 3.2 GM/DL (3.2-4.5)
[2021-04-21 04:56] LABS: POTASSIUM 4.2 MMOL/L (3.6-5.0)
[2021-04-21 04:57] LABS: CALCIUM 8.9 MG/DL (8.5-10.1)
[2021-04-21 04:58] LABS: TOTAL PROTEIN 5.9 GM/DL (6.4-8.2)
[2021-04-21 05:01] LABS: PHOSPHORUS 4.7 MG/DL (2.3-4.7)
[2021-04-21 05:02] LABS: CREATININE SERUM 0.76 MG/DL (0.60-1.30)
[2021-04-21 05:04] LABS: MAGNESIUM 2.1 MG/DL (1.6-2.4)
[2021-04-21] MEDS: MULTIVIT W/MINERALS TAB (THERAGRAN M) PO SCH (05:28)
[2021-04-21] MEDS: THIAMINE 100 MG (VITAMIN B-1) TAB PO SCH (05:28)
[2021-04-21 08:05] VITALS: BP 128/93
[2021-04-21] MEDS: meTOproloL SUCCINATE 50 MG (TOPROL XL) TAB PO SCH (08:06)
[2021-04-21] MEDS: NICOTINE PATCH REMOVAL TP SCH (08:06)
[2021-04-21] MEDS: NICOTINE 14 MG (NICODERM) PATCH TD SCH (08:06)
[2021-04-21] MEDS: FOLIC ACID 1 MG TAB PO SCH (08:06)
[2021-04-21] MEDS: amLODIPine 5 MG (NORVASC) TAB PO SCH (08:06)
[2021-04-21] MEDS: MAGNESIUM OXIDE (MAG-OX)400 MG TAB PO SCH (08:06)
[2021-04-21] MEDS: ACETAMINOPHEN 325 MG TABLET PO PRN ×2 (09:40→17:22)
[2021-04-21 11:59] VITALS: BP 109/66
[2021-04-21 16:00] VITALS: BP 119/71
[2021-04-21] MEDS: ENOXAPARIN 40 MG/0.4 ML (LOVENOX) SYR SC SCH (17:25)
[2021-04-21 19:37] VITALS: BP 110/61
--- NOTE | 2021-04-21 19:40 | Progress Note - Hospitalist ---
Subjective HPI/CC On Admission Date Seen by Provider: Apr 21, 2021 Time Seen by Provider: 11:10 Subjective/Events-last exam He is feeling better. He is not shaking. He is not nauseous. He denies breathing trouble. He denies pain. Objective Exam Vital Signs Vital Signs Date Time Temp Pulse Resp B/P (MAP) Pulse Ox O2 Delivery O2 Flow Rate FiO2 04/21/21 16:00 36.2 68 20 119/71 (87) 97 Room Air 04/20/21 10:00 Capillary Refill : Less Than 3 Seconds General Appearance: No Apparent Distress, Obese Respiratory: Lungs Clear, Normal Breath Sounds, No Respiratory Distress Cardiovascular: Regular Rate, Rhythm, No Edema, No Murmur Gastrointestinal: Normal Bowel Sounds, Non Tender, Soft Extremity: Normal Inspection, Non Tender, No Pedal Edema Neurologic/Psychiatric: Alert, Oriented x3, Normal Mood/Affect Skin: Normal Color, Warm/Dry Results/Procedures Lab Laboratory Tests 04/21/21 04:16 Patient resulted labs reviewed. Imaging: Reviewed Imaging Report Assessment/Plan Assessment and Plan Assess & Plan/Chief Complaint Acute alcohol intoxication in alcoholism Alcohol withdrawal [facility] protocol IV fluids Multivitamins Requiring minimal Ativan Transfer to floor Hypertension Continue Metoprolol Tobacco abuse Nicotine patch Obesity Clinically significant, no acute management needs Debility PT/OT DVT prophylaxis: Lovenox Diagnosis/Problems Diagnosis/Problems (1) Acute alcoholic intoxication in alcoholism (blood level over 0.3) Status: Acute Qualifiers: Complication of substance-induced condition: uncomplicated Qualified Codes: F10.220 - Alcohol dependence with intoxication, uncomplicated (2) Alcohol withdrawal Status: Acute Qualifiers: Complication of substance-induced condition: uncomplicated Qualified Codes: F10.230 - Alcohol dependence with withdrawal, uncomplicated (3) Tobacco abuse Status: Chronic (4) Obesity Status: Chronic (5) HTN (hypertension) Status: Acute ADRIÁN RODRIGUEZ MD Apr 21, 2021 19:40
[2021-04-21] MEDS: LORazepam 1 MG (ATIVAN) TAB PO PRN (22:42)
[2021-04-22] VITALS: BP 115/70
[2021-04-22 04:00] VITALS: BP 107/51
[2021-04-22 05:51] LABS: BASOPHILS % (AUTO) 1 % (0-10); EOSINOPHILS # (AUTO) 0.1 10^3/uL (0.0-0.3); EOSINOPHILS % (AUTO) 2 % (0-10); HEMATOCRIT 38 % (40-54); HEMOGLOBIN 12.6 g/dL (13.3-17.7); LYMPHOCYTES # (AUTO) 1.6 10^3/uL (1.0-4.0); LYMPHOCYTES % (AUTO) 35 % (12-44); MEAN CORPUSCULAR HEMOGLOBIN 32 pg (25-34); MEAN CORPUSCULAR HGB CONC 33 g/dL (32-36); MEAN CORPUSCULAR VOLUME 96 fL (80-99); MEAN PLATELET VOLUME 9.9 fL (9.0-12.2); MONOCYTES # (AUTO) 0.6 10^3/uL (0.0-1.0); MONOCYTES % (AUTO) 12 % (0-12); NEUTROPHILS # (AUTO) 2.3 10^3/uL (1.8-7.8); NEUTROPHILS % (AUTO) 49 % (42-75); PLATELET COUNT 163 10^3/uL (130-400); WHITE BLOOD COUNT 4.6 10^3/uL (4.3-11.0)
[2021-04-22 06:10] LABS: ALBUMIN 3.4 GM/DL (3.2-4.5); POTASSIUM 3.9 MMOL/L (3.6-5.0)
[2021-04-22 06:11] LABS: CALCIUM 8.9 MG/DL (8.5-10.1)
[2021-04-22 06:13] LABS: TOTAL PROTEIN 6.2 GM/DL (6.4-8.2)
[2021-04-22 06:14] LABS: BILIRUBIN,TOTAL 0.8 MG/DL (0.1-1.0)
[2021-04-22 06:16] LABS: CREATININE SERUM 0.74 MG/DL (0.60-1.30); PHOSPHORUS 4.7 MG/DL (2.3-4.7)
[2021-04-22] MEDS: MULTIVIT W/MINERALS TAB (THERAGRAN M) PO SCH (06:39)
[2021-04-22 08:16] VITALS: BP 137/80
[2021-04-22] MEDS: FOLIC ACID 1 MG TAB PO SCH (09:11)
[2021-04-22] MEDS: NICOTINE PATCH REMOVAL TP SCH (09:12)
[2021-04-22] MEDS: amLODIPine 5 MG (NORVASC) TAB PO SCH (09:12)
[2021-04-22] MEDS: meTOproloL SUCCINATE 50 MG (TOPROL XL) TAB PO SCH (09:12)
[2021-04-22] MEDS: NICOTINE 14 MG (NICODERM) PATCH TD SCH (09:12)
[2021-04-22] MEDS: ACETAMINOPHEN 325 MG TABLET PO PRN (10:25)
[2021-04-22] MEDS ORDERED: LORA-404 PO (10:52)
[2021-04-22] MEDS ORDERED: AMLO-250 PO (10:52)
[2021-04-22] MEDS ORDERED: METO50TA7 PO (10:52)
--- NOTE | 2021-04-22 10:54 | Discharge Summary ---
Discharge Summary Hospital Course Was the Problem List Reviewed?: Yes Problems/Dx: (1) Acute alcoholic intoxication in alcoholism (blood level over 0.3) Status: Acute Qualifiers: Qualified Codes: F10.220 - Alcohol dependence with intoxication, uncomplicated (2) Alcohol withdrawal Status: Acute Qualifiers: Qualified Codes: F10.230 - Alcohol dependence with withdrawal, uncomplicated (3) Tobacco abuse Status: Chronic (4) Obesity Status: Chronic (5) HTN (hypertension) Status: Acute Hospital Course Date of Admission: Apr 18, 2021 at 16:43 Admission Diagnosis : Family Physician/Provider: No,Local Physician Date of Discharge: 04/22/21 Discharge Diagnosis: Alcohol intoxication, alcoholism, hypertension Hospital Course: Hospital Course: Pt had an uneventful hospital course for five days after he was admitted for acute alcohol intoxication from [facility]. He was placed on alcohol withdrawal protocol. He improved. BP medications were added with good results. Anxiety at night was an issue so I did send in a small supply of Ativan to help him and he will follow-up with Dr. Douglas and Alcoholics Anonymous. Labs and Pending Lab Test: Laboratory Tests 04/22/21 05:44: White Blood Count 4.6, Red Blood Count 3.91L, Hemoglobin 12.6L, Hematocrit 38L, Mean Corpuscular Volume 96, Mean Corpuscular Hemoglobin 32, Mean Corpuscular Hemoglobin Concent 33, Red Cell Distribution Width 14.7H, Platelet Count 163, Mean Platelet Volume 9.9, Immature Granulocyte % (Auto) 1, Neutrophils (%) (Auto) 49, Lymphocytes (%) (Auto) 35, Monocytes (%) (Auto) 12, Eosinophils (%) (Auto) 2, Basophils (%) (Auto) 1, Neutrophils # (Auto) 2.3, Lymphocytes # (Auto) 1.6, Monocytes # (Auto) 0.6, Eosinophils # (Auto) 0.1, Basophils # (Auto) 0.0, Immature Granulocyte # (Auto) 0.0, Sodium Level 136, Potassium Level 3.9, Chloride Level 102, Carbon Dioxide Level 22, Anion Gap 12, Blood Urea Nitrogen 10, Creatinine 0.74, Estimat Glomerular Filtration Rate 108, BUN/Creatinine Ratio 14, Glucose Level 101, Calcium Level 8.9, Corrected Calcium 9.4, Phosphorus Level 4.7, Magnesium Level 2.0, Total Bilirubin 0.8, Aspartate Amino Transf (AST/SGOT) 77H, Alanine Aminotransferase (ALT/SGPT) 76H, Alkaline Phosphatase 99, Total Protein 6.2L, Albumin 3.4 Home Meds Active Ativan (Lorazepam) 0.5 Mg Tablet 0.5 Mg PO HS PRN Amlodipine Besylate 5 Mg Tablet 5 Mg PO DAILY Metoprolol Succinate 50 Mg Tab.er.24h 50 Mg PO DAILY Reported Visine Dry Eye Relief (Polyethylene Glycol 400) 30 Ml Drops 1 Drop OU DAILY PRN Vitamin C (Ascorbate Calcium) 500 Mg Tablet 500 Mg PO DAILY Ibuprofen 200 Mg Tablet 600 Mg PO DAILY PRN TAKES 3 (200MG) TABLETS Vitamin D3 (Cholecalciferol (Vitamin D3)) 125 Mcg Capsule 125 Mcg PO DAILY Benadryl Allergy (Diphenhydramine HCl) 25 Mg Tablet 50 Mg PO HS Multivitamin 1 Each Tablet 1 Each PO DAILY Assessment/Pt Instructions PCP Dr. Castillo in 1 week Attend Alcoholics Anonymous Discharge Planning: <30 minutes discharge planning Discharge Instructions Discharge Diet: No Restrictions Activity as Tolerated: Yes Discharge Physical Examination Vital Signs Vital Signs Date Time Temp Pulse Resp B/P (MAP) Pulse Ox O2 Delivery O2 Flow Rate FiO2 04/22/21 09:00 Room Air 04/22/21 08:16 37.0 90 18 137/80 (99) 98 04/20/21 10:00 General Appearance: No Apparent Distress, WD/WN, Chronically ill Allergies: Coded Allergies: No Known Drug Allergies (Unverified , 01/03/21) Discharge Summary Date of Admission Apr 18, 2021 at 16:43 Date of Discharge Discharge Date: Apr 22, 2021 Admission Diagnosis Acute alcohol intoxication in alcoholism Discharge Diagnosis (1) Acute alcoholic intoxication in alcoholism (blood level over 0.3) Status: Acute Qualifiers: Qualified Codes: F10.220 - Alcohol dependence with intoxication, uncomplicated (2) Alcohol withdrawal Status: Acute Qualifiers: Qualified Codes: F10.230 - Alcohol dependence with withdrawal, uncomplicated (3) Tobacco abuse Status: Chronic (4) Obesity Status: Chronic (5) HTN (hypertension) Status: Acute RAFA MCGOVERN DO Apr 22, 2021 10:54
[2021-04-22 11:20] VITALS: BP 136/76
--- NOTE | 2021-04-22 12:04 | Progress Note ---
TA PEREIRA 04/22/21 1204: Progress Note Patient is a [age] year old male that presented to [facility] on 04/18 with an admitting diagnosis of acute alcohol intoxication, alcoholism, and alcohol withdrawal. Patient was admitted to the ICU and place on a CIWA protocol that consisted of ativan, IV fluids, glucose replacement, folate replacement, and a multivitamin. Patient was also placed on lovenox. On 04/20 patient began seeing clinical improvements and was requiring minimal ativan. Patient was transferred to the med/surg floor at [facility]. On 04/22 patient had continued to see marked improvement and felt he was ready to go home. Discussion was had with patient to discuss his plans after discharge. Patient stated he plans on going to his local chapter of in [place]. Patient is also needed a short-term prescription of ativan to help him sleep until he is able to get in with his primary care provider, Dr. Fregoso at the [facility] in [place]. GENNY MCGOVERN DO 04/23/21 0533: Supervisory-Addendum Brief Verification & Attestation Participated in pt care: history, MDM, physical Personally performed: exam, history, MDM, supervision of care Care discussed with: Medical Student Procedures: n/a Results interpretation: Verified all documentation Verification and Attestation of Medical Student E/M Service A medical student performed and documented this service in my presence. I reviewed and verified all information documented by the medical student and made modifications to such information, when appropriate. I personally performed the physical exam and medical decision making. eGnny Mcgovern Apr 23, 2021,05:32 TA PEREIRA Apr 22, 2021 12:04 GENNY MCGOVERN DO Apr 23, 2021 05:33
--- NOTE | 2021-04-22 12:14 | Occupational Ther Daily Note ---
OT Current Status-Daily Note Subjective Pt denies pain, agreeable to treatment. Appearance Left sitting in chair, all needs within reach. Mental Status/Objective Patient Orientation: Person, Place, Situation Attachments: IV ADL-Treatment Therapy Code Descriptions/Definitions Functional [place] Measure: 0=Not Assessed/NA 4=Minimal Assistance 1=Total Assistance 5=Supervision or Setup 2=Maximal Assistance 6=Modified [place] 3=Moderate Assistance 7=Complete IndependenceSCALE: Activities may be completed with or without assistive devices. 7-Ojgqkfdvyt-zvhhhng completes the activity by him/herself with no assistance from a helper. 5-Set-up or Clean-up Assistance-helper sets up or cleans up; patient completes activity. [place] assists only prior to or following the activity. 4-Supervision or Touching Assistance-helper provides verbal cues and/or touching/steadying and/or contact guard assistance as patient completes activity. Assistance may be provided throughout the activity or intermittently. 3-Partial/Moderate Assistance-helper does LESS THAN HALF the effort. [place] lifts, holds or supports trunk or limbs, but provides less than half the effort. 2-Substantial/Maximal Assistance-helper does MORE THAN HALF the effort. [place] lifts or holds trunk or limbs and provides more than half the effort. 2-Cnbxvlylz-esfkql does ALL the effort. Patient does none of the effort to complete the activity. Or, the assistance of 2 or more helpers is required for the patient to complete the activity. If activity was not attempted, code reason: 7-Patient Refused. 9-Not Applicable-not attempted and the patient did not perform the activity before the current illness, exacerbation or injury. 10-Not Attempted due to Environmental Limitations-(lack of equipment, weather restraints, etc.). 88-Not Attempted due to Medical Conditions or Safety Concerns. Eating (QC): 6 Lower Body Dressing (QC): 5 On/Off Footwear: 6 Toilet Transfer (QC): 4 Pt sitting in chair. Able to don/doff jil socks without effort. Sit<>stand: Sup for safety, no unsteadiness observed. Pt requesting to ambulate in halls. With walker, pt ambulated >200 feet with SBA. 1 cue for walker management. Good follow through post instruction. Able to lower/stand from toilet without assist. 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 2=Patient will verbalize/demonstrate understanding of assistive devices/modifications for ADL. 3=Patient will improve strength/tolerance for activity to enable patient to perform ADL's. OT Education/Plan Problem List/Assessment Assessment: No Skilled OT Needs ID'd Discharge Recommendations Plan/Recommendations: Discharge/Goals Met Therapy Discharge Recommendati: Home & Family Treatment Plan/Plan of Care Treatment,Training & Education: Yes Patient would benefit from OT for education, treatment and training to promote independence in ADL's, mobility, safety and/or upper extremity function for ADL's. Plan of Care: ADL Retraining, Functional Mobility, Group Exercise/Act as Ind, UE Funct Exercise/Act Treatment Duration: May 04, 2021 Frequency: 3 times per week Estimated Hrs Per Day: .25 hour per day Agreement: Yes Rehab Potential: Fair Time/GCodes Start Time: 09:34 Stop Time: 09:48 Total Time Billed (hr/min): 14 Billed Treatment Time 1, ADL Rita [address] OT Apr 22, 2021 12:14
== END 2021-04-22 14:50 | disposition home or self-care (01) | DRG 897 ==
LOC: ICU 16:43 → 4TH 04-21 11:21
PROVIDERS: ADMIT Internal Medicine; ATTEND Internal Medicine
DX: F10.229 Alcohol dependence with intoxication, unspecified (principal); F10.239 Alcohol dependence with withdrawal, unspecified; E66.9 Obesity, unspecified; I10 Essential (primary) hypertension; F17.210 Nicotine dependence, cigarettes, uncomplicated; R53.81 Other malaise; Z68.38 Body mass index [BMI] 38.0-38.9, adult
CPT/HCPCS: 36415; 80048; 80053; 82947; 83735; 84100; 85025